=== PATIENT | female | born 1980 | race Caucasian/White ===

== ENCOUNTER 2016-11-16 15:13 | Emergency (ER) | payer OTHER ==
--- NOTE | 2016-11-16 15:16 | EDM.PDOC ---
ED HPI GENERAL MEDICAL PROBLEM - General Chief Complaint: Abdominal Pain Stated Complaint: POSS KIDNEY STONE Time Seen by Provider: 11/16/16 15:16 - History of Present Illness INITIAL COMMENTS - FREE TEXT/NARRATIVE: 36-year-old female presents emergency room with right-sided abdominal pain. This started with the last hour to hour and a half. It's very similar to prior kidney stones that she has had in the past she cannot get comfortable the pain is getting more significant the pain is in the right flank and wraps around her abdomen. It does not shoot into the groin yet. Patient is significantly uncomfortable. Patient significant past history of SVT post-ablation doing better she uses occasional Lasix when she gets fluid overloaded she's had multiple evaluations heart catheterization some of which show primary pulmonary hypertension this is not confirmed at this point. She's had kidney stones but in our records I cannot confirm this. For control she has an IUD that has worked well for her. Right Flank Pain Score (Numeric/FACES): 8 - Related Data Allergies Allergy/AdvReac Type Severity Reaction Status Date / Time No Known Allergies Allergy Verified 11/16/16 15:27 Home Meds: Home Meds Acetaminophen/HYDROcodone [[place] 325-5 MG] 1 tab PO Q6HR PRN #10 tab 01/10/14 [ Rx] Acetaminophen with Codeine [Tylenol with Codeine #3 Tablet] 1 tab PO DAILY PRN 09/27/14 [History] Cyclobenzaprine [Flexeril] 10 mg PO DAILY PRN 09/27/14 [History] Furosemide [Lasix] 20 mg PO DAILY PRN 09/27/14 [History] Topiramate [Topamax] 50 mg PO BID 09/27/14 [History] Acetaminophen/HYDROcodone [[place] 325-5 MG] 1 - 2 tab PO Q6H PRN #20 tablet 11/16 [Rx] Hydrocodone/Acetaminophen [[place] 5-325 Tablet] 1 - 2 tab PO Q6H PRN #20 tablet 11/16/16 [Rx] Past Medical History Cardiovascular History: Reports: Heart Failure, Other (See Below) Other Cardiovascular History: SVT, fluid retention - Past Surgical History HEENT Surgical History: Reports: Eye Surgery Cardiovascular Surgical History: Reports: Other (See Below) Social & Family History - Family History Neurological: Reports: Cerebral Aneurysms Oncologic: Reports: Brain - Tobacco Use Smoking Status *Q: Never Smoker Second Hand Smoke Exposure: No - Alcohol Use Days Per Week of Alcohol Use: 1 Number of Drinks Per Day: 1 Total Drinks Per Week: 1 - Recreational Drug Use Recreational Drug Use: No ED ROS GENERAL - Review of Systems Review Of Systems: See Below Constitutional: Reports: Chills (She has chills with pain). Denies: Fever HEENT: Reports: No Symptoms Respiratory: Reports: No Symptoms Cardiovascular: Reports: No Symptoms GI/Abdominal: Reports: Abdominal Pain, Nausea. Denies: Black Stool, Bloody Stool, Constipation, Diarrhea, Vomiting : Reports: Flank Pain. Denies: Dysuria, Frequency ED EXAM, GENERAL - Physical Exam Exam: See Below Exam Limited By: No Limitations General Appearance: Alert, Mild Distress (From the pain she keeps needing to change positions to try and find a comfortable position but this does not help much) Head: Atraumatic, Normocephalic Neck: Normal Inspection, Supple, Non-Tender, Full Range of Motion Respiratory/Chest: No Respiratory Distress, Lungs Clear, Normal Breath Sounds Cardiovascular: Regular Rate, Rhythm, No Edema, No Murmur GI/Abdominal: Normal Bowel Sounds, Soft, Other. No: Non-Tender (She has significant right-sided abdominal tenderness this is not worsened with palpation no rebound or guarding appreciated) Back Exam: Normal Inspection, CVA Tenderness (R). No: CVA Tenderness (L) Extremities: Normal Inspection, No Pedal Edema Neurological: Alert, Oriented, Normal Cognition Course - Vital Signs Last Recorded V/S: Last Vital Signs Temp 36.6 C 11/16/16 15:24 Pulse 94 11/16/16 15:24 Resp 16 11/16/16 15:24 BP 137/92 H 11/16/16 15:24 Pulse Ox 99 11/16/16 15:24 - Orders/Labs/Meds Orders: Active Orders 24 hr Category Date Time Status Abdomen Pelvis wo Cont [CT] Stat Exams 11/16/16 15:47 Taken Lactated Ringers [Ringers, Lactated] 1,000 ml Med 11/16/16 15:45 Active IV ASDIRECTED Medication Orders Lactated Ringer's (Ringers, Lactated) 1,000 mls @ 100 mls/hr IV ASDIRECTED CHANTELL Last Admin: 11/16/16 15:53 Dose: 100 mls/hr Labs: Laboratory Tests 11/16/16 11/16/16 11/16/16 Range/Units 15:40 15:40 16:55 WBC 8.30 (3.98-10.04) K/mm3 RBC 4.31 (3.98-5.22) M/mm3 Hgb 13.0 (11.2-15.7) gm/L Hct 38.6 (34.1-44.9) % MCV 89.6 (79.4-94.8) fl MCH 30.2 (25.6-32.2) pg MCHC 33.7 (32.2-35.5) g/dl RDW Std Deviation 42.2 (36.4-46.3) fL Plt Count 314 (182-369) K/mm3 MPV 9.4 (9.4-12.3) fl Neutrophils % (Manual) 49 (40-60) % Band Neutrophils % 0 (0-10) % Lymphocytes % (Manual) 40 (20-40) % Atypical Lymphs % 0 % Monocytes % (Manual) 2 (2-10) % Eosinophils % (Manual) 7 H (0.7-5.8) % Basophils % (Manual) 2 H (0.1-1.2) Platelet Estimate Adequate Plt Morphology Comment Normal Anisocytosis 1+ slight RBC Morph Comment Not Reportable Sodium 138 (136-145) mEq/L Potassium 3.8 (3.5-5.1) mEq/L Chloride 107 (98-107) mEq/L Carbon Dioxide 20 L (21-32) mEq/L Anion Gap 14.8 (5-15) BUN 9 (7-18) mg/dL Creatinine 0.9 (0.55-1.02) mg/dL Est Cr Clr Drug Dosing 77.01 mL/min Estimated GFR (MDRD) > 60 (>60) mL/min BUN/Creatinine Ratio 10.0 L (14-18) Glucose 134 H (74-106) mg/dL Calcium 9.3 (8.5-10.1) mg/dL Total Bilirubin 0.2 (0.2-1.0) mg/dL AST 16 (15-37) U/L ALT 21 (14-59) U/L Alkaline Phosphatase 69 (46-116) U/L Total Protein 7.1 (6.4-8.2) g/dl Albumin 3.7 (3.4-5.0) g/dl Globulin 3.4 gm/dL Albumin/Globulin Ratio 1.1 (1-2) Urine Color Light yellow (Yellow) Urine Appearance Clear (Clear) Urine pH 6.0 (5.0-8.0) Ur Specific [place] 1.025 (1.005-1.030) Urine Protein Negative (Negative) Urine Glucose (UA) Negative (Negative) Urine Ketones Negative (Negative) Urine Occult Blood 2+ H (Negative) Urine Nitrite Negative (Negative) Urine Bilirubin Negative (Negative) Urine Urobilinogen 0.2 (0.2-1.0) Ur Leukocyte Esterase Negative (Negative) Urine RBC 10-20 H (0-5) /hpf Urine WBC 0-5 (0-5) /hpf Ur Epithelial Cells 10-20 H (0-5) /hpf Urine Bacteria Rare (FEW) /hpf Urine Mucus Not seen (FEW) /hpf Meds: Medications Generic Name Dose Route Start Last Admin Trade Name [place] PRN Reason Stop Dose Admin Lactated Ringer's 1,000 mls @ 100 mls/hr 11/16/16 15:45 11/16/16 15:53 Ringers, Lactated IV 100 mls/hr ASDIRECTED CHANTELL Administration Discontinued Medications Generic Name Dose Route Start Last Admin Trade Name Freq PRN Reason Stop Dose Admin Hydrocodone Bitart/Acetaminophen 1 tab 11/16/16 17:12 11/16/16 17:24 [place] 325-5 Mg PO 11/16/16 17:13 1 tab ONETIME ONE Administration Fentanyl 100 mcg 11/16/16 15:45 11/16/16 15:57 Sublimaze IVPUSH 11/16/16 15:46 100 mcg ONETIME ONE Administration Fentanyl Confirm 11/16/16 15:49 11/16/16 15:54 Sublimaze Administered 11/16/16 15:50 Not Given Dose 100 mcg .ROUTE .STK-MED ONE Lactated Ringer's Confirm 11/16/16 15:49 11/16/16 15:55 Ringers, Lactated Administered 11/16/16 15:50 Not Given Dose 1,000 mls @ as directed .ROUTE .STK-MED ONE Ondansetron HCl 4 mg 11/16/16 15:45 11/16/16 15:53 Zofran IVPUSH 11/16/16 15:46 4 mg ONETIME ONE Administration Ondansetron HCl Confirm 11/16/16 15:49 11/16/16 15:54 Zofran Administered 11/16/16 15:50 Not Given Dose 4 mg .ROUTE .[facility] ONE - Re-Assessments/Exams Free Text/Narrative Re-Assessment/Exam: 11/16/16 19:[address] exam which does not confirm a kidney stone on the right side. This was discussed with the patient and his it turns out her kidney stones were diagnosed based on UA and she never really had any formal imaging done. She does have a fairly large left ovarian cyst this is not were pain is at. Laboratory evaluation is unrevealing at this point. Patient is getting some reasonable pain control on oral medications. Diagnosis this point is abdominal pain unknown cause patient agrees to returning if not improving or returning sooner if getting worse. Departure - Departure Time of Disposition: 19:14 Disposition: Home, Self-Care 01 Clinical Impression: Abdominal pain of unknown cause - Discharge Information Prescriptions: Acetaminophen/HYDROcodone [[place] 325-5 MG] 1 - 2 tab PO Q6H PRN #20 tablet PRN Reason: Abdominal Pain Hydrocodone/Acetaminophen [[place] 5-325 Tablet] 1 - 2 tab PO Q6H PRN #20 tablet PRN Reason: Abdominal Pain Referrals: Gabby Berry MD [Primary Care Provider] - Forms: ED Department Discharge Additional Instructions: Return to the emergency room with any questions problems worsening symptoms. Return in 12-24 hours if not better, sooner if getting worse. The cause of your abdominal pain cannot clearly be identified at this time. You have been started on hydrocodone. Take one or 2 every 6 hours as needed for pain use your home Zofran as needed for nausea. The Montrose can cause sedation allow 12 hours after using that medication before driving or returning to work. - My Orders Last 24 Hours: My Active Orders 11/16/16 15:45 Lactated Ringers [Ringers, Lactated] 1,000 ml IV ASDIRECTED 11/16/16 15:47 Abdomen Pelvis wo Cont [CT] Stat - Assessment/Plan Last 24 Hours: My Active Orders 11/16/16 15:45 Lactated Ringers [Ringers, Lactated] 1,000 ml IV ASDIRECTED 11/16/16 15:47 Abdomen Pelvis wo Cont [CT] Stat
[2016-11-16 15:26] VITALS: BP 137/92
[2016-11-16] MEDS ORDERED: Lactated Ringers 1,000 ML IV SCH (15:45)
[2016-11-16] MEDS ORDERED: fentaNYL 100 MCG/2 ML SDV IVPUSH ONE (15:45)
[2016-11-16] MEDS ORDERED: Ondansetron 4 MG/2 ML SDV IVPUSH ONE (15:45)
[2016-11-16] MEDS ORDERED: Lactated Ringers 1,000 ML ONE (15:49)
[2016-11-16] MEDS ORDERED: fentaNYL 100 MCG/2 ML SDV ONE (15:49)
[2016-11-16] MEDS ORDERED: Ondansetron 4 MG/2 ML SDV ONE (15:49)
[2016-11-16] MEDS ORDERED: Acetaminophen/HYDROcodone 325-5 MG Tab PO ONE (17:12)
--- NOTE | 2016-11-17 18:24 | CT ---
CT abdomen and pelvis Technique: Multiple axial sections were obtained from above the dome of the diaphragm inferiorly through the pubic symphysis. Intravenous and oral contrast not utilized. Study has been performed as a renal stone protocol. Comparison: Previous right upper quadrant abdominal ultrasound of 01/10/14, no previous CT exam. Findings: Visualized lung bases show nothing acute. Noncontrast appearance of the liver and spleen appear within normal limits. Adrenal glands show no nodule. Surgical clips are seen from prior cholecystectomy. Pancreas is within normal limits. Kidneys show no calcifications. No ureteral dilatation or ureteral stone is seen. Aorta shows no aneurysmal dilatation. No retroperitoneal adenopathy or mesenteric abnormalities are seen. Previous appendectomy is noted. No pelvic mass or adenopathy is seen. Incidental 4.0 cm cyst is noted within the left ovary. IUD is present within the endometrial cavity. No free fluid or inflammatory change is identified. Impression: 1. 4.0 cm cyst within the left ovary. IUD is present. 2. No renal calculi, ureteral dilatation or ureteral stone is seen. 3. Nothing acute is identified on noncontrast CT study of the abdomen and pelvis performed as a ureteral stone protocol. Diagnostic code #3 Agree with preliminary report issued by [employer] ([facility] preliminary report dictated on 11/16/16, 5:35 PM Central Time)
== END 2016-11-16 19:42 | disposition home or self-care (01) ==
LOC: JD.ED 15:13
DX: R10.9 Unspecified abdominal pain (principal); I50.9 Heart failure, unspecified; Z98.890 Other specified postprocedural states; Z79.899 Other long term (current) drug therapy
CPT/HCPCS: 36415; 74176; 80053; 81001; 85025; 96361; 96374; 96375; 99284; A9270; J2405; J3010; J7120; 99283

== ENCOUNTER 2017-07-07 09:22 | Emergency (ER) | payer OTHER ==
[2017-07-07 09:40] VITALS: BP 128/70
--- NOTE | 2017-07-07 09:49 | EDM.PDOC ---
ED HPI GENERAL MEDICAL PROBLEM - General Chief Complaint: Chest Pain Stated Complaint: CHEST PAIN Time Seen by Provider: 07/07/17 09:41 Source of Information: Reports: Patient, RN Notes Reviewed - History of Present Illness INITIAL COMMENTS - FREE TEXT/NARRATIVE: 37-year-old female comes in with mild anterior chest discomfort but also symptoms of nonspecific weakness dizziness. All started a few days ago, continues today. Multiple episodes of feeling weak lightheaded especially standing or walking. This occurred again this morning at work triggered her visit here to the ED at this time. There is mild achiness and tightness of the anterior chest without radiation. She does not feel short of breath. The pain is at times worse with deep breathing. She did have some low-grade fever and chills about for 5 days ago but that is gone. No current cough or sore throat. No current abdominal pain nausea vomiting. She believes that she has been eating and drinking satisfactorily. Chest Pain Score (Numeric/FACES): 5 - Related Data Allergies Allergy/AdvReac Type Severity Reaction Status Date / Time No Known Allergies Allergy Verified 07/07/17 09:40 Home Meds: Home Meds Acetaminophen with Codeine [Tylenol with Codeine #3 Tablet] 1 tab PO DAILY PRN 09/27/14 [History] Cyclobenzaprine [Flexeril] 10 mg PO DAILY PRN 09/27/14 [History] Furosemide [Lasix] 20 mg PO DAILY PRN 09/27/14 [History] Topiramate [Topamax] 75 mg PO BID 09/27/14 [History] Hydrocodone/Acetaminophen [[place] 5-325 Tablet] 1 - 2 tab PO Q6H PRN #20 tablet 11/16/16 [Rx] Past Medical History Cardiovascular History: Reports: Heart Failure, Other (See Below) Other Cardiovascular History: SVT, fluid retention Genitourinary History: Reports: Renal Calculus Neurological History: Reports: Migraines - Past Surgical History HEENT Surgical History: Reports: Eye Surgery Cardiovascular Surgical History: Reports: Cardiac Ablation GI Surgical History: Reports: Appendectomy, Cholecystectomy Social & Family History - Family History Family Medical History: Noncontributory Neurological: Reports: Cerebral Aneurysms Oncologic: Reports: Brain - Tobacco Use Smoking Status *Q: Never Smoker Second Hand Smoke Exposure: No - Caffeine Use Caffeine Use: Reports: Soda - Alcohol Use Days Per Week of Alcohol Use: 1 Number of Drinks Per Day: 1 Total Drinks Per Week: 1 - Recreational Drug Use Recreational Drug Use: No ED ROS GENERAL - Review of Systems Review Of Systems: See Below Constitutional: Denies: Fever, Chills HEENT: Denies: Sinus Problem, Throat Pain Respiratory: Reports: Pleuritic Chest Pain. Denies: Shortness of Breath, Cough (Occasional mild) Cardiovascular: Reports: Chest Pain GI/Abdominal: Denies: Abdominal Pain, Diarrhea, Nausea, Vomiting : Reports: No Symptoms Musculoskeletal: Denies: Shoulder Pain, Arm Pain, Joint Pain Skin: Reports: No Symptoms Neurological: Reports: Dizziness. Denies: Numbness, Tingling ED EXAM, GENERAL - Physical Exam Exam: See Below General Appearance: Alert, No Apparent Distress Eye Exam: Bilateral Eye: PERRL Throat/Mouth: Normal Inspection, Normal Oropharynx Head: Atraumatic. No: Facial Swelling Neck: Supple, Full Range of Motion Respiratory/Chest: No Respiratory Distress, Lungs Clear, Normal Breath Sounds Cardiovascular: Regular Rate, Rhythm GI/Abdominal: Soft, Non-Tender. No: Guarding Back Exam: Normal Inspection. No: CVA Tenderness (L), CVA Tenderness (R) Extremities: Normal Inspection, Normal Range of Motion. No: Pedal Edema, Leg Pain Neurological: Alert, Oriented, No Motor/Sensory Deficits Skin Exam: Warm, Dry, Normal Color EKG INTERPRETATION EKG Date: 07/07/17 Rhythm: NSR [place]: Normal P-Wave: Present QRS: Normal ST-T: Normal Course - Vital Signs Last Recorded V/S: Last Vital Signs Temp 97.4 F 07/07/17 09:34 Pulse 61 07/07/17 09:34 Resp 16 07/07/17 09:34 BP 128/70 07/07/17 09:34 Pulse Ox 100 07/07/17 09:34 - Orders/Labs/Meds Orders: Active Orders 24 hr Category Date Time Status EKG 12 Lead [EKG Documentation Completion] [RC] STAT Care 07/07/17 10:02 Active Labs: Laboratory Tests 07/07/17 07/07/17 Range/Units 10:10 10:10 WBC 5.61 (3.98-10.04) K/mm3 RBC 4.25 (3.98-5.22) M/mm3 Hgb 12.4 (11.2-15.7) gm/L Hct 38.4 (34.1-44.9) % MCV 90.4 (79.4-94.8) fl MCH 29.2 (25.6-32.2) pg MCHC 32.3 (32.2-35.5) g/dl RDW Std Deviation 40.5 (36.4-46.3) fL Plt Count 283 (182-369) K/mm3 MPV 9.2 L (9.4-12.3) fl Neut % (Auto) 54.2 (34.0-71.1) % Lymph % (Auto) 33.2 (19.3-51.7) % Clinch % (Auto) 7.1 (4.7-12.5) % Eos % (Auto) 4.6 (0.7-5.8) Baso % (Auto) 0.7 (0.1-1.2) % Neut # (Auto) 3.04 (1.56-6.13) K/mm3 Lymph # (Auto) 1.86 (1.18-3.74) K/mm3 Clinch # (Auto) 0.40 H (0.24-0.36) K/mm3 Eos # (Auto) 0.26 (0.04-0.36) K/mm3 Baso # (Auto) 0.04 (0.01-0.08) K/mm3 Sodium 141 (136-145) mEq/L Potassium 4.3 (3.5-5.1) mEq/L Chloride 106 (98-107) mEq/L Carbon Dioxide 25 (21-32) mEq/L Anion Gap 14.3 (5-15) BUN 8 (7-18) mg/dL Creatinine 0.9 (0.55-1.02) mg/dL Est Cr Clr Drug Dosing 76.26 mL/min Estimated GFR (MDRD) > 60 (>60) mL/min BUN/Creatinine Ratio 8.9 L (14-18) Glucose 104 (74-106) mg/dL Calcium 9.5 (8.5-10.1) mg/dL Total Bilirubin 0.3 (0.2-1.0) mg/dL AST 13 L (15-37) U/L ALT 19 (14-59) U/L Alkaline Phosphatase 58 (46-116) U/L Troponin I < 0.017 (0.00-0.056) ng/mL Total Protein 7.0 (6.4-8.2) g/dl Albumin 3.8 (3.4-5.0) g/dl Globulin 3.2 gm/dL Albumin/Globulin Ratio 1.2 (1-2) - Re-Assessments/Exams Free Text/Narrative Re-Assessment/Exam: 07/07/17 11:32 Hemoglobin 12.4, other labs all come back relatively normal. EKG is normal. O2 sats have been 99 to 100. sinus rythm, no ectopy. Discharge instr. as documented. Departure - Departure Time of Disposition: 11:38 Disposition: Home, Self-Care 01 Condition: Fair Clinical Impression: Near syncope, Atypical chest pain Instructions: Near-Syncope, [id number], Nonspecific Chest Pain, [id number] Referrals: PCP,None [Ordering Only Provider] - Forms: ED Department Discharge Additional Instructions: Your heart and lungs checked out well today, your hemoglobin at 12.4 was in the lower range of normal, consider iron supplement for the next month or so to help build that up. When you do get extremely lightheaded similar to earlier today be sure to get your head down as discussed so you do not pass out and hurt yourself. Follow-up clinic if not much better within the next several days as expected, return to ED as needed if symptoms worsening in any way. - My Orders Last 24 Hours: My Active Orders 07/07/17 10:02 EKG 12 Lead [EKG Documentation Completion] [RC] STAT - Assessment/Plan Last 24 Hours: My Active Orders 07/07/17 10:02 EKG 12 Lead [EKG Documentation Completion] [RC] STAT
== END 2017-07-07 11:51 | disposition home or self-care (01) ==
LOC: JD.ED 09:22
DX: R55 Syncope and collapse (principal); R07.89 Other chest pain; Z79.899 Other long term (current) drug therapy
CPT/HCPCS: 36415; 80053; 84484; 85025; 93005; 93010; 99284-25; 99285-25

== ENCOUNTER 2017-07-12 15:31 | Emergency (ER) | payer OTHER ==
[2017-07-12 15:43] VITALS: BP 121/84
[2017-07-12] MEDS ORDERED: HYDROmorphone 1 MG/ML Syringe IM ONE (16:19)
[2017-07-12] MEDS ORDERED: Ketorolac 60 MG/2 ML SDV IM ONE (16:19)
--- NOTE | 2017-07-12 16:22 | EDM.PDOC ---
ED HPI GENERAL MEDICAL PROBLEM - General Chief Complaint: Upper Extremity Injury/Pain Stated Complaint: Right wrist injury Time Seen by Provider: 07/12/17 15:40 Source of Information: Reports: Patient, RN Notes Reviewed History Limitations: Reports: No Limitations - History of Present Illness INITIAL COMMENTS - FREE TEXT/NARRATIVE: 37 year old female presents to the ED today with swelling and deformity to right wrist. Injury happened today. She had a syncopal episode in the shower and subsequently injured her wrist. This episode occurred after she vomited. She has a history of syncope and SVT. She has had an ablation in the past and has been doing well until recently. She was in the ED this past week for syncope complaints and palpitations. She is planning to f/u with her PCP and then proceed from there regarding her syncope. Her primary concern today is her wrist. She took two Aleve [employer]IST. She reports some numness and tingling to her fingers. Right Wrist Pain Score (Numeric/FACES): 7 - Related Data Allergies Allergy/AdvReac Type Severity Reaction Status Date / Time No Known Allergies Allergy Verified 07/07/17 09:40 Home Meds: Home Meds Acetaminophen with Codeine [Tylenol with Codeine #3 Tablet] 1 tab PO DAILY PRN 09/27/14 [History] Cyclobenzaprine [Flexeril] 10 mg PO DAILY PRN 09/27/14 [History] Furosemide [Lasix] 20 mg PO DAILY PRN 09/27/14 [History] Topiramate [Topamax] 50 mg PO DAILY 09/27/14 [History] Acetaminophen/HYDROcodone [[place] 325-5 MG] 1 - 2 tab PO Q4H PRN #20 tablet 07/12 [Rx] Hydrocodone/Acetaminophen [[place] 5-325 Tablet] 1 - 2 tab PO Q6H PRN 07/12/17 [ History] Potassium Chloride 0 meq PO ASDIRECTED PRN 07/12/17 [History] Topiramate [Topamax] 100 mg PO BEDTIME 07/12/17 [History] Past Medical History Cardiovascular History: Reports: Heart Failure, Syncope, Other (See Below) Other Cardiovascular History: SVT, fluid retention Genitourinary History: Reports: Renal Calculus Neurological History: Reports: Migraines - Past Surgical History HEENT Surgical History: Reports: Eye Surgery Cardiovascular Surgical History: Reports: Cardiac Ablation GI Surgical History: Reports: Appendectomy, Cholecystectomy Social & Family History - Family History Family Medical History: Noncontributory Neurological: Reports: Cerebral Aneurysms Oncologic: Reports: Brain - Tobacco Use Smoking Status *Q: Never Smoker Second Hand Smoke Exposure: No - Caffeine Use Caffeine Use: Reports: Soda - Alcohol Use Days Per Week of Alcohol Use: 1 Number of Drinks Per Day: 1 Total Drinks Per Week: 1 - Recreational Drug Use Recreational Drug Use: No Review of Systems - Review of Systems Review Of Systems: See Below Respiratory: Reports: No Symptoms. Denies: Shortness of Breath Cardiovascular: Reports: Syncope. Denies: Chest Pain, Lightheadedness GI/Abdominal: Reports: Nausea, Vomiting. Denies: Abdominal Pain Musculoskeletal: Reports: Other (wrist pain, swelling ) Skin: Reports: Bruising Neurological: Reports: Numbness, Tingling ED EXAM, GENERAL - Physical Exam Exam: See Below Exam Limited By: No Limitations General Appearance: Alert, WD/WN, Moderate Distress Respiratory/Chest: No Respiratory Distress, Lungs Clear, Normal Breath Sounds Cardiovascular: Normal Peripheral Pulses, Regular Rate, Rhythm, No Edema, No Murmur, Other (NSR 70 - 80 bpm on monitor) Peripheral Pulses: 2+: Radial (R) GI/Abdominal: Normal Bowel Sounds, Soft, Non-Tender Extremities: Joint Swelling (right wrist ), Other (bony point tenderness to right wrist with mild deformity and bruising. Neurovascular status intact. ) Neurological: Alert, Normal Cognition, No Motor/Sensory Deficits Skin Exam: Warm, Dry, Intact Course - Vital Signs Last Recorded V/S: Last Vital Signs Temp 97.2 F 07/12/17 15:41 Pulse 79 07/12/17 15:41 Resp 20 07/12/17 15:41 BP 121/84 07/12/17 15:41 Pulse Ox 97 07/12/17 15:41 - Orders/Labs/Meds Orders: Active Orders 24 hr Category Date Time Status Wrist Comp Min 3V Rt [CR] Stat Exams 07/12/17 15:55 Ordered Meds: Medications Discontinued Medications Generic Name Dose Route Start Last Admin Trade Name Freq PRN Reason Stop Dose Admin Hydromorphone HCl 0.5 mg 07/12/17 16:19 07/12/17 16:27 Dilaudid IM 07/12/17 16:20 0.5 mg ONETIME ONE Administration Ketorolac Tromethamine 60 mg 07/12/17 16:19 07/12/17 16:27 Toradol IM 07/12/17 16:20 60 mg ONETIME ONE Administration - Radiology Interpretation Free Text/Narrative:: Wrist x-ray obtained. No bony abnormality or dislocation appreciated. I had Dr. Booker look at this as well and he agrees with my interpretation. Formal radiologist interpretation is pending. - Re-Assessments/Exams Free Text/Narrative Re-Assessment/Exam: Patient was given Dilaudid 0.5mg and Toradol 60mg IM while in the ED. She will be placed in a removable wrist splint with instructions to f/u with Dr. Cerna this week. She was educated on supportive care. She will be given a prescription for Harrison 1-2 tabs every 4-6 hours PRN severe pain. She was instructed to f/u with her PCP regarding her Syncope. Departure - Departure Time of Disposition: 16:20 Disposition: Home, Self-Care 01 Condition: Good Clinical Impression: Wrist injury Qualifiers: Encounter type: initial encounter Laterality: right Qualified Code(s): S69.91XA - Unspecified injury of right wrist, hand and finger(s), initial encounter - Discharge Information Prescriptions: Acetaminophen/HYDROcodone [[place] 325-5 MG] 1 - 2 tab PO Q4H PRN #20 tablet PRN Reason: Pain Referrals: Gabby Berry MD [Primary Care Provider] - Forms: ED Department Discharge Additional Instructions: Rest, ice and elevate Wear splint as tolerated Follow-up with Dr. Cerna this week, call [phone] to schedule Ibuprofen 600mg 3 times a day with Tylenol or Harrison as needed for breakthrough pain Do not exceed 3000mg of Tylenol per day No driving or operating machinery while taking the Harrison. Follow-up with your primary care provider regarding your syncope episodes. - My Orders Last 24 Hours: My Active Orders 07/12/17 15:55 Wrist Comp Min 3V Rt [CR] Stat - Assessment/Plan Last 24 Hours: My Active Orders 07/12/17 15:55 Wrist Comp Min 3V Rt [CR] Stat
--- NOTE | 2017-07-13 12:53 | CR ---
Right wrist: Three views of the right wrist were obtained. Comparison: No prior right wrist exam. Soft tissue swelling is identified. Joint spaces are preserved. No fracture, dislocation or other bony abnormality is appreciated. Impression: 1. Soft tissue swelling. No acute bony abnormality is appreciated. Diagnostic code #2
== END 2017-07-12 16:44 | disposition home or self-care (01) ==
LOC: JD.ED 15:31
DX: S60.211A Contusion of right wrist, initial encounter (principal); I50.9 Heart failure, unspecified; Z79.899 Other long term (current) drug therapy; X58.XXXA Exposure to other specified factors, initial encounter
CPT/HCPCS: 73110; 96372; 99284; J1170; J1885; 99283

== ENCOUNTER 2017-09-13 05:35 | Emergency (ER) | payer OTHER ==
[2017-09-13 05:51] VITALS: BP 111/99
[2017-09-13] MEDS ORDERED: HYDROmorphone 0.5 MG/0.5 ML SYRINGE IVPUSH ONE ×2 (05:53→06:42)
[2017-09-13] MEDS ORDERED: Metoclopramide 10 MG/2 ML SDV IVPUSH ONE (05:54)
--- NOTE | 2017-09-13 05:58 | EDM.PDOC ---
<Morgan Briggs - Last Filed: 09/13/17 09:14> ED HPI GENERAL MEDICAL PROBLEM - General Chief Complaint: Flank Pain Stated Complaint: back and side pain Time Seen by Provider: 09/13/17 05:53 - Related Data Allergies Allergy/AdvReac Type Severity Reaction Status Date / Time No Known Allergies Allergy Verified 09/13/17 05:45 Home Meds: Home Meds Furosemide [Lasix] 20 mg PO DAILY PRN 09/27/14 [History] Topiramate [Topamax] 100 mg PO BEDTIME 07/12/17 [History] Ondansetron [Zofran] 4 mg BUCCAL Q6H PRN #5 tab 09/13/17 [Rx] oxyCODONE HCl/Acetaminophen [Percocet 5-325 mg Tablet] 1 - 2 each PO Q4H PRN # 15 tablet 09/13/17 [Rx] Course - Vital Signs Last Recorded V/S: Last Vital Signs Temp 36.2 C 09/13/17 05:42 Pulse 78 09/13/17 05:42 Resp 16 09/13/17 05:42 BP 111/99 H 09/13/17 05:42 Pulse Ox 100 09/13/17 05:42 - Orders/Labs/Meds Orders: Active Orders 24 hr Category Date Time Status Abdomen Pelvis wo Cont [CT] Stat Exams 09/13/17 05:55 Taken URINALYSIS W/MICROSCOPIC [UA W/MICROSCOPIC] [URIN] Stat Lab 09/13/17 05:59 Ordered Labs: Laboratory Tests 09/13/17 Range/Units 05:59 Urine Color Yellow (Yellow) Urine Appearance Clear (Clear) Urine pH 6.0 (5.0-8.0) Ur Specific Deshler > or = 1.030 (1.005-1.030) Urine Protein Negative (Negative) Urine Glucose (UA) Negative (Negative) Urine Ketones Negative (Negative) Urine Occult Blood 3+ H (Negative) Urine Nitrite Negative (Negative) Urine Bilirubin Negative (Negative) Urine Urobilinogen 0.2 (0.2-1.0) Ur Leukocyte Esterase Negative (Negative) Urine RBC 75-100 H (0-5) /hpf Urine WBC 0-5 (0-5) /hpf Ur Epithelial Cells 10-20 H (0-5) /hpf Urine Bacteria Moderate H (FEW) /hpf Urine Mucus Moderate H (FEW) /hpf Meds: Medications Discontinued Medications Generic Name Dose Route Start Last Admin Trade Name Jannette PRN Reason Stop Dose Admin Fentanyl 100 mcg 09/13/17 07:59 09/13/17 08:07 Sublimaze IVPUSH 09/13/17 08:00 100 mcg ONETIME ONE Administration Fentanyl 50 mcg 09/13/17 09:13 09/13/17 09:18 Sublimaze IVPUSH 09/13/17 09:14 50 mcg ONETIME ONE Administration Hydromorphone HCl 1 mg 09/13/17 05:53 09/13/17 06:04 Dilaudid IVPUSH 09/13/17 05:54 1 mg ONETIME ONE Administration Hydromorphone HCl 0.5 mg 09/13/17 06:42 09/13/17 06:48 Dilaudid IVPUSH 09/13/17 06:43 0.5 mg ONETIME ONE Administration Sodium Chloride 1,000 mls @ 150 mls/hr 09/13/17 06:00 09/13/17 06:03 Normal Saline IV 150 mls/hr ASDIRECTED CHANTELL Administration Ketorolac Tromethamine 30 mg 09/13/17 06:00 09/13/17 06:08 Toradol IVPUSH 30 mg ONETIME CHANTELL Administration Metoclopramide HCl 7.5 mg 09/13/17 05:54 09/13/17 06:04 Reglan IVPUSH 09/13/17 05:55 7.5 mg ONETIME ONE Administration - Re-Assessments/Exams Free Text/Narrative Re-Assessment/Exam: 09/13/17 09:[address] Means. Her CT shows a 2mm distal right ureteral calculus causes dilatation of the right ureter, and right collecting system. The right kidney is edematous and there is right perirenal stranding. She still had pain so I ordered fentanyl 100mcg IV. She is about to leave now so I ordered another dose of fentanyl 50mcg IV. Her UA shows no UTI. She does have blood in her urine. Departure - Departure Time of Disposition: 09:20 Disposition: Home, Self-Care 01 Condition: Fair Clinical Impression: Renal colic on right side, Ureteral calculus, right, Kidney stone on right side - Discharge Information Prescriptions: Ondansetron [Zofran] 4 mg BUCCAL Q6H PRN #5 tab PRN Reason: nausea or vomiting oxyCODONE HCl/Acetaminophen [Percocet 5-325 mg Tablet] 1 - 2 each PO Q4H PRN # 15 tablet PRN Reason: pain relief. Instructions: Renal Colic, [id number], Kidney Stones, [id number] Referrals: Gabby Berry MD [Primary Care Provider] - Alfonso Cole MD [Physician] - 1 Week Forms: ED Department Discharge Additional Instructions: Evaluation the emergency room this morning in regards to acute onset of severe right flank pain radiating into the right hemiabdomen towards the groin. Symptoms are characteristic of a kidney stone. Urinalysis shows 3+ blood cells in the urine which is characteristic of a kidney stone as well. CT scan of the abdomen and pelvis performed per renal protocol reveals mild to moderate swelling of the right kidney due to obstruction of the ureter. Ureter is dilated down to the urinary bladder but no definitive stone or calcified stone is identified on CT. This may mean this may be a uric acid stone which does not show up on CT. You're treated in the ED with intravenous pain medication Dilaudid initially with 1 mg and then a 0.5 mg dose later on. Also received initial dose of Toradol 30 mg IV for pain relief and Reglan for nausea relief. Usually the stones pass over the next 48-72 hours. However they are unpredictable. Treatment is Zofran 4 mg under the tongue every 4-6 hours as needed for nausea relief. Percocet tabs 5/3/25 one or 2 every 4-6 hours needed for pain relief. Stone is in the urinary bladder he will pass without any further pain. Of note CT did not identify any other stones within the kidney tissues at this time. Of note there is increased stool particularly throughout the right hemicolon and if you need many of the pain pills you should also start MiraLAX powder 17 g or 1 scoop daily to prevent worsening of constipation from the pain medications. Strain the urine to make sure that you pass the stone. It should feel like a piece of stone or sand. It can be of any color usually reynoso to black. If stone was not noted to have passed over the next 2 weeks and follow-up with your personal physician in this regard. Also when he would need to return to the hospital. Developed any fever, chills nausea or vomiting that was not controlled by oral medications - My Orders Last 24 Hours: My Active Orders 09/13/17 05:55 Abdomen Pelvis wo Cont [CT] Stat 09/13/17 05:59 URINALYSIS W/MICROSCOPIC [UA W/MICROSCOPIC] [URIN] Stat - Assessment/Plan Last 24 Hours: My Active Orders 09/13/17 05:55 Abdomen Pelvis wo Cont [CT] Stat 09/13/17 05:59 URINALYSIS W/MICROSCOPIC [UA W/MICROSCOPIC] [URIN] Stat <ClaryRick jiménez Dora - Last Filed: 09/13/17 19:47> ED HPI GENERAL MEDICAL PROBLEM - General Source of Information: Reports: Patient, Family (spouse) History Limitations: Reports: No Limitations - History of Present Illness INITIAL COMMENTS - FREE TEXT/NARRATIVE: 37-year-old female attends the ED with her . She awoke from sleep within the last hour with severe pain in her right flank. Associated nausea and vomiting of bilious emesis. Associated feeling of need to void and to defecate. Continues to have a feeling of need to void. Pain does radiate into the right hemiabdomen down towards the groin. She has no history of renal stones. Previous abdominal surgeries include total abdominal hysterectomy and BSO. Cholecystectomy. Appendectomy. Laparoscopy prior to hysterectomy for endometriosis. Has not noticed any blood in her urine. She indicates that she's been having right flank pain off and on for the last 6 days. Usually would last for short periods of time and never was associated with nausea and vomiting until tonight. This suggests a stone has been vomiting the renal pelvis for the last week. This would suggest its likely of large caliber pain is currently 10 out of 10. It is constant with a colicky component. Onset: Today Onset Date: 09/13/17 Onset Time: 04:40 Duration: Hour(s): Location: Reports: Abdomen, Back (Right flank pain) Quality: Reports: Ache, Sharp, Stabbing Severity: Severe Improves with: Reports: None (10 out of 10 in no position is comfortable.) Worsens with: Reports: None Context: Denies: Activity, Exercise, Lifting, Sick Contact, Trauma, Other Associated Symptoms: Reports: Loss of Appetite, Nausea/Vomiting. 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: Other (see below) (None.) Right Flank Pain Score (Numeric/FACES): 10 Past Medical History Cardiovascular History: Reports: Heart Failure, Syncope, Other (See Below) Other Cardiovascular History: SVT, fluid retention Genitourinary History: Reports: Renal Calculus Neurological History: Reports: Migraines - Past Surgical History HEENT Surgical History: Reports: Eye Surgery Cardiovascular Surgical History: Reports: Cardiac Ablation GI Surgical History: Reports: Appendectomy, Cholecystectomy Female Surgical History: Reports: Hysterectomy (Both ovaries were left in.), Other (See Below) (Laparoscopy for endometriosis.) Social & Family History - Family History Family Medical History: Noncontributory Neurological: Reports: Cerebral Aneurysms Oncologic: Reports: Brain - Tobacco Use Smoking Status *Q: Never Smoker - Caffeine Use Caffeine Use: Reports: Coffee - Recreational Drug Use Recreational Drug Use: No - Living Situation & Occupation Living situation: Reports: Occupation: Employed ED ROS GENERAL - Review of Systems Review Of Systems: See Below Constitutional: Reports: Decreased Appetite. Denies: Fever, Chills, Malaise, Weakness, Fatigue, Weight Loss HEENT: Reports: No Symptoms Respiratory: Reports: No Symptoms Cardiovascular: Reports: No Symptoms Endocrine: Reports: No Symptoms GI/Abdominal: Reports: Abdominal Pain (Currently he is experiencing some right olvin-abdominal pain down to the groin. Most her pain however is in her right flank.) : Reports: Flank Pain, Frequency (Severe right side), Urgency Musculoskeletal: Reports: Back Pain Skin: Reports: No Symptoms (Right flank pain) Neurological: Reports: No Symptoms Psychiatric: Reports: No Symptoms Hematologic/Lymphatic: Reports: No Symptoms Immunologic: Reports: No Symptoms ED EXAM, RENAL/ - Physical Exam Exam: See Below Exam Limited By: No Limitations General Appearance: Alert, Moderate Distress (In obvious discomfort. Can't lay down for examination no position is comfortable.) Eye Exam: Bilateral Eye: Normal Inspection (No jaundice.) Throat/Mouth: Normal Inspection, Normal Lips, Normal Oropharynx Head: Atraumatic, Normocephalic Neck: Normal Inspection, Supple, Non-Tender, Full Range of Motion. No: Lymphadenopathy (L), Lymphadenopathy (R) Respiratory/Chest: No Respiratory Distress, Lungs Clear, Normal Breath Sounds, Chest Non-Tender Cardiovascular: Normal Peripheral Pulses, Regular Rate, Rhythm, No Edema, No Gallop, No Murmur, No Rub GI/Abdominal: Non-Tender (Decreased bowel sounds.), No Organomegaly, No Abnormal Bruit, No Mass, Pelvis Stable, Abnormal Bowel Sounds, Other (Several surgical scars from laparoscopies) Back Exam: CVA Tenderness (R). No: CVA Tenderness (L) (Moderate) Extremities: Normal Inspection, Normal Range of Motion, Non-Tender, No Pedal Edema Neurological: Alert, Oriented, CN II-XII Intact, Normal Cognition, Normal Gait Psychiatric: Normal Affect, Normal Mood Skin Exam: Warm, Dry, Intact, Normal Color, No Rash Course - Orders/Labs/Meds Orders: Active Orders 24 hr Category Date Time Status Abdomen Pelvis wo Cont [CT] Stat Exams 09/13/17 05:55 Taken URINALYSIS W/MICROSCOPIC [UA W/MICROSCOPIC] [URIN] Stat Lab 09/13/17 05:59 Ordered Labs: Laboratory Tests 09/13/17 Range/Units 05:59 Urine Color Yellow (Yellow) Urine Appearance Clear (Clear) Urine pH 6.0 (5.0-8.0) Ur Specific [place] > or = 1.030 (1.005-1.030) Urine Protein Negative (Negative) Urine Glucose (UA) Negative (Negative) Urine Ketones Negative (Negative) Urine Occult Blood 3+ H (Negative) Urine Nitrite Negative (Negative) Urine Bilirubin Negative (Negative) Urine Urobilinogen 0.2 (0.2-1.0) Ur Leukocyte Esterase Negative (Negative) Urine RBC 75-100 H (0-5) /hpf Urine WBC 0-5 (0-5) /hpf Ur Epithelial Cells 10-20 H (0-5) /hpf Urine Bacteria Moderate H (FEW) /hpf Urine Mucus Moderate H (FEW) /hpf Meds: Medications Discontinued Medications Generic Name Dose Route Start Last Admin Trade Name Ministerioq PRN Reason Stop Dose Admin Fentanyl 100 mcg 09/13/17 07:59 09/13/17 08:07 Sublimaze IVPUSH 09/13/17 08:00 100 mcg ONETIME ONE Administration Fentanyl 50 mcg 09/13/17 09:13 09/13/17 09:18 Sublimaze IVPUSH 09/13/17 09:14 50 mcg ONETIME ONE Administration Hydromorphone HCl 1 mg 09/13/17 05:53 09/13/17 06:04 Dilaudid IVPUSH 09/13/17 05:54 1 mg ONETIME ONE Administration Hydromorphone HCl 0.5 mg 09/13/17 06:42 09/13/17 06:48 Dilaudid IVPUSH 09/13/17 06:43 0.5 mg ONETIME ONE Administration Sodium Chloride 1,000 mls @ 150 mls/hr 09/13/17 06:00 09/13/17 06:03 Normal Saline IV 150 mls/hr ASDIRECTED CHANTELL Administration Ketorolac Tromethamine 30 mg 09/13/17 06:00 09/13/17 06:08 Toradol IVPUSH 30 mg ONETIME CHANTELL Administration Metoclopramide HCl 7.5 mg 09/13/17 05:54 09/13/17 06:04 Reglan IVPUSH 09/13/17 05:55 7.5 mg ONETIME ONE Administration - Radiology Interpretation Free Text/Narrative:: 37-year-old female attends the ED with acute onset of right flank pain that awoke her from sleep within the last hour. Associated nausea and vomiting. Socially no position is comfortable. She also has a strong feeling of need to defecate and to pass her urine. Has not noticed any hematuria. Has been having intermittent right flank pain since last Friday. I.e. for the last 6 days. Has had previous total abdominal hysterectomy and BSO. She's had a cholecystectomy and appendectomy. Benign abdominal examination. Plan IV normal saline at 150 mils per hour. Dilaudid 1 mg IV with Reglan 7.5 mg IV and Toradol 30 mg IV for pain relief. Urinalysis and then CT of the abdomen to be done per renal protocol - Re-Assessments/Exams Free Text/Narrative Re-Assessment/Exam: 09/13/17 06:43 patient reports her pain is improved but not gone. She still has 4/10 pain. Will give her further dose of Dilaudid 0.[address] the abdomen and pelvis is done per per renal protocol. There is mild right-sided hydronephrosis. No stones are visible within the renal parenchyma on either side. The right ureter is dilated down to the urinary bladder but no definitive stone is evident at this time. Uric acid stone occluding the ureter as possible and is not visible on CT. She has voided in the bladder is empty. The fact that she still having pain suggest she is passing a stone. It appears the stone is likely in the distal aspect of the ureter since it is dilated to that level. Gallbladder is absent. Liver appears homogeneous. Spleen is normal pancreas appears normal. Renal glands appear to be within normal limits. There is increased stool throughout the right hemicolon. No free fluid in the pelvis. Uterus is absent. Ovaries are very ill-defined. 09/13/17 07:06 urinalysis reveals 3+ hematuria. Leukocyte Estrace is negative. Her 75-100 RBCs per high-power field. Moderate bacteria noted. Care will be assumed by Dr. Briggs as it is change of shift. She needs to stay until her pain is controlled. Will be discharged with the urinary system. Prescription written for Percocet tabs 07/24/24 one or 2 every 4-6 hours as needed for pain relief and Zofran 4 mg sublingual every 4-6 hours needed for nausea relief 5 tablets. Departure - Departure Condition: Fair - My Orders Last 24 Hours: My Active Orders 09/13/17 05:55 Abdomen Pelvis wo Cont [CT] Stat 09/13/17 05:59 URINALYSIS W/MICROSCOPIC [UA W/MICROSCOPIC] [URIN] Stat - Assessment/Plan Last 24 Hours: My Active Orders 09/13/17 05:55 Abdomen Pelvis wo Cont [CT] Stat 09/13/17 05:59 URINALYSIS W/MICROSCOPIC [UA W/MICROSCOPIC] [URIN] Stat
[2017-09-13] MEDS ORDERED: Ketorolac 30 MG/ML SDV IVPUSH SCH (06:00)
[2017-09-13] MEDS ORDERED: Sodium Chloride 0.9% 1,000 ML IV SCH (06:00)
[2017-09-13] MEDS ORDERED: fentaNYL 100 MCG/2 ML SDV IVPUSH ONE ×2 (07:59→09:13)
--- NOTE | 2017-09-15 07:07 | CT ---
CT abdomen and pelvis Technique: Multiple axial sections were obtained from above the dome of the diaphragm inferiorly through the pubic symphysis. Intravenous and oral contrast not utilized. Study has been performed as a ureteral stone protocol. Comparison: Prior CT abdomen and pelvis exam of 11/16/16. Findings: Right kidney appears mildly swollen with mild surrounding inflammatory change. Right-sided hydronephrosis is seen with dilated ureter down to the UVJ. These findings are caused by 2.5 mm obstructing stone within the distal right ureter at the UVJ. No other abnormal calcifications are seen along the course of the ureters. No abnormal calcifications are seen within the kidneys. Visualized lung bases show nothing acute. Liver and spleen shows no focal abnormality. Adrenal glands show no nodule. Surgical clips are seen from prior cholecystectomy. No discrete abnormality is seen within the pancreas. Aorta shows no aneurysmal dilatation. No retroperitoneal adenopathy or mesenteric abnormalities are seen. No pelvic mass or adenopathy is seen. Appendix is not identified. Bone window settings were reviewed which appear within normal limits for the patient's age. Impression: 1. Small 2.5 mm obstructing stone within the distal right ureter at the UVJ causing mild proximal hydronephrosis. 2. Other incidental findings as noted above. Diagnostic code #3 I agree with preliminary report from [facility], finalized at 09/13/17, 8:50 AM Central Time
== END 2017-09-13 09:29 | disposition home or self-care (01) ==
LOC: JD.ED 05:35
DX: N20.2 Calculus of kidney with calculus of ureter (principal); Z79.899 Other long term (current) drug therapy
CPT/HCPCS: 74176; 81001; 96361; 96374; 96375; 96376; 99284; J1170; J1885; J2765; J3010; J7040

== ENCOUNTER 2017-09-15 18:52 | Emergency (ER) | payer OTHER ==
--- NOTE | 2017-09-15 19:29 | EDM.PDOC ---
<Amanda Steven - Last Filed: 09/15/17 19:41> ED HPI GENERAL MEDICAL PROBLEM - General Chief Complaint: Flank Pain Stated Complaint: KIDNEY STONE Time Seen by Provider: 09/15/17 19:10 Source of Information: Reports: Patient History Limitations: Reports: No Limitations - History of Present Illness INITIAL COMMENTS - FREE TEXT/NARRATIVE: 37 yo female presents to the ED for R flank pain secondary to a kidney stone. She was seen here 2 days ago and a 2mm stone was seen in the right UVJ. She said she went home and felt much better the first day but has been in pain since she woke up this morning. She reports increased pain throughout the day and nausea. She has been trying to increase her fluid intake despite the nausea and vomiting. She reports the pain is the same today as it was 2 days ago when she was first seen. She last took one percocet almost 3 hours ago and has not had pain relief. She has tried ODT Zofran with no nausea relief. She believes she has had fevers for the past few days. She reports adequate urine output with a small amount of blood, denies dysuria. Onset: Sudden Duration: Constant, Getting Worse (over the past 24 hours) Flank Pain Score (Numeric/FACES): 9 - Related Data Allergies Allergy/AdvReac Type Severity Reaction Status Date / Time No Known Allergies Allergy Verified 09/15/17 19:03 Home Meds: Home Meds Furosemide [Lasix] 20 mg PO DAILY PRN 09/27/14 [History] Topiramate [Topamax] 100 mg PO ASDIRECTED 07/12/17 [History] Ondansetron [Zofran] 4 mg BUCCAL Q6H PRN #5 tab 09/13/17 [Rx] oxyCODONE HCl/Acetaminophen [Percocet 5-325 mg Tablet] 1 - 2 each PO Q4H PRN # 15 tablet 09/13/17 [Rx] Acetaminophen/HYDROcodone [Centenary 325-5 MG] 1 - 2 tab PO Q6H PRN #20 tablet 09/16 [Rx] Ondansetron [Zofran ODT] 1 tab PO Q8H PRN #10 tab.dis 09/16/17 [Rx] Tamsulosin HCl [Flomax] 1 cap PO BEDTIME PRN #5 cap.er.24h 09/16/17 [Rx] Past Medical History Cardiovascular History: Reports: Heart Failure, Syncope, Other (See Below) Other Cardiovascular History: SVT, fluid retention Genitourinary History: Reports: Renal Calculus Neurological History: Reports: Migraines - Past Surgical History HEENT Surgical History: Reports: Eye Surgery Cardiovascular Surgical History: Reports: Cardiac Ablation GI Surgical History: Reports: Appendectomy, Cholecystectomy Female Surgical History: Reports: Hysterectomy, Other (See Below) Social & Family History - Family History Family Medical History: Noncontributory Neurological: Reports: Cerebral Aneurysms Oncologic: Reports: Brain - Tobacco Use Smoking Status *Q: Never Smoker - Caffeine Use Caffeine Use: Reports: Soda - Recreational Drug Use Recreational Drug Use: No - Living Situation & Occupation Living situation: Reports: Occupation: Employed ED ROS GENERAL - Review of Systems Review Of Systems: See Below Constitutional: Reports: Fever, Decreased Appetite. Denies: Chills, Weakness HEENT: Reports: No Symptoms Respiratory: Reports: No Symptoms. Denies: Shortness of Breath, Cough Cardiovascular: Reports: No Symptoms. Denies: Chest Pain, Palpitations Endocrine: Reports: No Symptoms GI/Abdominal: Reports: Decreased Appetite, Nausea, Vomiting. Denies: Constipation, Diarrhea : Reports: Flank Pain (Right flank pain radiating to the back and groin), Hematuria. Denies: Dysuria, Frequency, Urgency, Urinary Retention Musculoskeletal: Reports: Back Pain (Right lower back) Skin: Reports: No Symptoms Neurological: Reports: No Symptoms Psychiatric: Reports: No Symptoms Hematologic/Lymphatic: Reports: No Symptoms Immunologic: Reports: No Symptoms ED EXAM, RENAL/ - Physical Exam Exam: See Below Exam Limited By: No Limitations General Appearance: Alert, WD/WN, Mild Distress (Standing next to the bed, appears uncomfortable) Ears: Normal External Exam, Hearing Grossly Normal Nose: Normal Inspection Throat/Mouth: Normal Inspection Head: Atraumatic, Normocephalic Neck: Normal Inspection, Non-Tender, Full Range of Motion Respiratory/Chest: No Respiratory Distress, Lungs Clear, Normal Breath Sounds Cardiovascular: Normal Peripheral Pulses, Regular Rate, Rhythm, No Edema, No Gallop, No JVD, No Murmur GI/Abdominal: Normal Bowel Sounds, Soft Back Exam: Full Range of Motion, CVA Tenderness (R) Extremities: Normal Inspection, Normal Range of Motion, No Pedal Edema Neurological: Alert, Oriented, Normal Cognition, No Motor/Sensory Deficits Psychiatric: Normal Affect, Anxious Skin Exam: Warm, Dry, Intact, Normal Color, No Rash Course - Vital Signs Last Recorded V/S: Last Vital Signs Temp 36.1 C 09/15/17 19:00 Pulse 116 H 09/15/17 19:00 Resp 18 09/15/17 19:00 BP 157/88 H 09/15/17 19:00 Pulse Ox 100 09/15/17 19:00 - Orders/Labs/Meds Orders: Active Orders 24 hr Category Date Time Status Abdomen Pelvis w Cont [CT] Stat Exams 09/15/17 20:48 Taken UA W/MICROSCOPIC [URIN] Stat Lab 09/15/17 19:55 Ordered Dextrose 5%-0.9% NaCl [Dextrose 5%-Normal Saline] 1,000 Med 09/15/17 19:45 Active ml IV ASDIRECTED Medication Orders Dextrose/Sodium Chloride (Dextrose 5%-Normal Saline) 1,000 mls @ 999 mls/hr IV ASDIRECTED CHANTELL Last Admin: 09/15/17 20:04 Dose: 999 mls/hr Labs: Laboratory Tests 09/15/17 09/15/17 09/15/17 Range/Units 19:15 19:15 19:55 WBC 14.94 H (3.98-10.04) K/mm3 RBC 3.83 L (3.98-5.22) M/mm3 Hgb 11.5 (11.2-15.7) gm/L Hct 34.8 (34.1-44.9) % MCV 90.9 (79.4-94.8) fl MCH 30.0 (25.6-32.2) pg MCHC 33.0 (32.2-35.5) g/dl RDW Std Deviation 41.1 (36.4-46.3) fL Plt Count 256 (182-369) K/mm3 MPV 9.5 (9.4-12.3) fl Neut % (Auto) 71.8 H (34.0-71.1) % Lymph % (Auto) 16.4 L (19.3-51.7) % Dewey % (Auto) 9.0 (4.7-12.5) % Eos % (Auto) 2.3 (0.7-5.8) Baso % (Auto) 0.3 (0.1-1.2) % Neut # (Auto) 10.73 H (1.56-6.13) K/mm3 Lymph # (Auto) 2.45 (1.18-3.74) K/mm3 Dewey # (Auto) 1.34 H (0.24-0.36) K/mm3 Eos # (Auto) 0.34 (0.04-0.36) K/mm3 Baso # (Auto) 0.05 (0.01-0.08) K/mm3 Sodium 138 (136-145) mEq/L Potassium 3.8 (3.5-5.1) mEq/L Chloride 103 (98-107) mEq/L Carbon Dioxide 26 (21-32) mEq/L Anion Gap 12.8 (5-15) BUN 13 (7-18) mg/dL Creatinine 1.2 H (0.55-1.02) mg/dL Est Cr Clr Drug Dosing 57.20 mL/min Estimated GFR (MDRD) 50 (>60) mL/min BUN/Creatinine Ratio 10.8 L (14-18) Glucose 133 H (74-106) mg/dL Calcium 8.5 (8.5-10.1) mg/dL Total Bilirubin 0.6 (0.2-1.0) mg/dL AST 137 H (15-37) U/L ALT 86 H (14-59) U/L Alkaline Phosphatase 102 (46-116) U/L C-Reactive Protein 18.4 H* (<1.0) mg/dL Total Protein 7.2 (6.4-8.2) g/dl Albumin 3.5 (3.4-5.0) g/dl Globulin 3.7 gm/dL Albumin/Globulin Ratio 1.0 (1-2) Urine Color Yellow (Yellow) Urine Appearance Clear (Clear) Urine pH 6.5 (5.0-8.0) Ur Specific [place] 1.020 (1.005-1.030) Urine Protein Trace H (Negative) Urine Glucose (UA) Negative (Negative) Urine Ketones 1+ H (Negative) Urine Occult Blood Trace-intact H (Negative) Urine Nitrite Negative (Negative) Urine Bilirubin Negative (Negative) Urine Urobilinogen 2.0 H (0.2-1.0) Ur Leukocyte Esterase Negative (Negative) Urine RBC 0-5 (0-5) /hpf Urine WBC 0-5 (0-5) /hpf Ur Epithelial Cells 0-5 (0-5) /hpf Urine Bacteria Few (FEW) /hpf Urine Mucus Not seen (FEW) /hpf Meds: Medications Generic Name Dose Route Start Last Admin Trade Name Freq PRN Reason Stop Dose Admin Dextrose/Sodium Chloride 1,000 mls @ 999 mls/hr 09/15/17 19:45 09/15/17 20:04 Dextrose 5%-Normal Saline IV 999 mls/hr ASDIRECTED CHNATELL Administration Discontinued Medications Generic Name Dose Route Start Last Admin Trade Name Freq PRN Reason Stop Dose Admin Diatrizoate Meglum/Diatrizoate Sod 90 ml 09/15/17 22:20 09/15/17 22:41 Gastrografin 37% PO 09/15/17 22:21 90 ml ONETIME ONE Administration Hydromorphone HCl 0.5 mg 09/15/17 19:38 09/15/17 19:54 Dilaudid IVPUSH 09/15/17 19:39 0.5 mg ONETIME ONE Administration Iopamidol 120 ml 09/15/17 22:20 09/15/17 22:41 Isovue-300 (61%) IVPUSH 09/15/17 22:21 120 ml ONETIME ONE Administration Ketorolac Tromethamine 30 mg 09/15/17 20:48 09/15/17 21:15 Toradol IVPUSH 09/15/17 20:49 30 mg ONETIME ONE Administration Metoclopramide HCl 10 mg 09/15/17 23:15 09/15/17 23:47 Reglan IVPUSH 09/15/17 23:16 10 mg ONETIME STA Administration Ondansetron HCl 4 mg 09/15/17 19:39 09/15/17 19:53 Zofran IVPUSH 09/15/17 19:40 4 mg ONETIME ONE Administration Departure - Departure Disposition: Home, Self-Care 01 Clinical Impression: Ureterolithiasis - Discharge Information Prescriptions: Acetaminophen/HYDROcodone [Centenary 325-5 MG] 1 - 2 tab PO Q6H PRN #20 tablet PRN Reason: Pain (Severe 7-10) Ondansetron [Zofran ODT] 1 tab PO Q8H PRN #10 tab.dis PRN Reason: Nausea/Vomiting Tamsulosin HCl [Flomax] 1 cap PO BEDTIME PRN #5 cap.er.24h PRN Reason: Pain Referrals: Gabby Brery MD [Primary Care Provider] - Rick George MD [Ordering Only Provider] - Forms: ED Department Discharge Additional Instructions: You were seen in the emergency room for continued right flank pain, nausea, and vomiting, after being diagnosed with a kidney stone on 09/13/2017. Workup in the ER included blood work, urinalysis, and a repeat CT scan of your abdomen and pelvis. The CT scan confirmed that you have a 1 mm stone at the bottom of your right ureter, just at the bladder. You do not have a urinary tract infection. Based on the size and location of your stone, you will ALMOST CERTAINLY pass this stone on your own. Take [id number] ibuprofen, 2-3 tablets (400-600 mg) every 8 hours, with food, as needed for pain. Take 1 to 2 tablets of the narcotic pain reliever Centenary up to every 6 hours, as needed for pain not relieved by ibuprofen. If you take Centenary, do not drive for 10 hours after taking. Centenary will likely cause constipation, so consider taking a stool softener. You have been started on the anti-spasm medicine Flomax. Take one capsule every evening, starting tomorrow evening, 09/16/2017. Dissolve one tablet of the anti-nausea medicine Zofran on your tongue up to every 8 hours, as needed for nausea/vomiting. Stay adequately hydrated. Strain all of your urine. If you capture the stone, take it to your doctor for analysis. Follow-up with your PCP, Dr. Dubon, at your previously scheduled appointment this coming , 09/18/2017. If you continue to have pain after one week, please follow-up with the Urologist Dr. George. If any other problems, please do not hesitate to return to the ER. <Guido Sherwood - Last Filed: 09/15/17 22:45> ED ROS GENERAL - Review of Systems Review Of Systems: See Below ED EXAM, RENAL/ - Physical Exam Exam: See Below GI/Abdominal: Tender (along the mcburneys point and right flank. ) Course - Re-Assessments/Exams Free Text/Narrative Re-Assessment/Exam: I have personally evaluated myself. Agree with HPI and physical findings documented by Kerri WAGNER. Labs reviewed: White blood cell count 14.94, hemoglobin 11.5, neutrophil percentage is 71.8, neutrophil number is 10.73, sodium 138, potassium 3.8, creatinine 1.2, glucose 133, AST 137, ALT 86, CRP is 18. UA: trace protein, 1+ ketones, and occult blood trace. Will order CT of the abdomen and pelvis with IV contrast. I have also ordered Toradol 30 mg IVP for pain. 09/15/17 22:34 CT the abdomen and pelvis has not been obtained yet. I have discussed the patient with Dr. Booker. He will assume care. <Ruben Booker - Last Filed: 09/16/17 00:27> Course - Re-Assessments/Exams Free Text/Narrative Re-Assessment/Exam: 09/16/17 00:01 Case received from BRIA Vilchis. CT of the abdomen and pelvis with contrast is read by [facility] as: A 1 mm stone is present within the right ureterovesicular junction resulting in moderate hydroureteronephrosis, edematous swelling of the right kidney, and perinephric/periureteral fat stranding. 09/16/17 00:11 Test results discussed with the patient. As above, the patient has a 1 mm stone at the UVJ. She will almost certainly pass the stone on her own. When seen on , she was discharged home with a prescription for Percocet 5/325 #15 and Zofran 4 mg #5, but was not given a strainer. For tonight's purposes, we will provide the patient with a urine strainer. I will write prescriptions for Centenary and Zofran, and start her on Flomax. I will refer her to Dr. George, with the stipulation that he would not likely want to see her unless she was unable to pass this stone after about a week or so. She states that she has an appointment to follow-up with her PCP, Dr. Dubon, this coming , 2017. Departure - Departure Time of Disposition: 00:15 Condition: Fair
[2017-09-15] MEDS ORDERED: HYDROmorphone 0.5 MG/0.5 ML SYRINGE IVPUSH ONE (19:38)
[2017-09-15] MEDS ORDERED: Ondansetron 4 MG/2 ML SDV IVPUSH ONE (19:39)
[2017-09-15] MEDS ORDERED: Dextrose 5%-0.9% NaCl 1,000 ML IV SCH (19:45)
[2017-09-15] MEDS ORDERED: Ketorolac 30 MG/ML SDV IVPUSH ONE (20:48)
[2017-09-15] MEDS ORDERED: Diatrizoate Meglumine/Diatrizoate Sodium 37% 120 ML Bottle PO ONE (22:20)
[2017-09-15] MEDS ORDERED: Iopamidol 612 MG/ML 150 ML Bottle IVPUSH ONE (22:20)
[2017-09-15] MEDS ORDERED: Metoclopramide 10 MG/2 ML SDV IVPUSH STA (23:15)
[2017-09-16] MEDS ORDERED: Tamsulosin 0.4 MG Cap.ER PO ONE (00:15)
[2017-09-16 00:45] VITALS: BP 131/74
--- NOTE | 2017-09-16 08:46 | CT ---
CT abdomen and pelvis Technique: Multiple axial sections were obtained from above the dome of the diaphragm inferiorly through the pubic symphysis. Intravenous and oral contrast was utilized. Delayed images were obtained through the bladder. Comparison: Prior renal stone CT exam of 09/13/17. Findings: 2.5 mm stone is noted within distal right ureter near the UVJ. This ureteral stone appears fairly similar to prior exam. Right ureter is dilated as well as the right kidney collecting system being dilated. Delayed perfusion is noted of the right kidney compatible with the obstruction. No other abnormal calcifications are seen within the kidneys or within the ureters. Visualized lung bases show nothing acute. Liver and spleen shows no focal parenchymal abnormality. Surgical clips are seen from prior cholecystectomy. Pancreas is within normal limits. Aorta shows no aneurysmal dilatation. No retroperitoneal adenopathy or mesenteric abnormalities are seen. Delayed images shows contrast within the left ureter and bladder. Appendix is not visualized. No free fluid or inflammatory change is seen. Bone window settings were reviewed which appear within normal limits for the patient's age. Impression: 1. 2.5 mm distal right ureteral stone at the UVJ causing ureteral obstruction as noted above. This finding is fairly stable from previous CT exam. 2. No additional abnormality is seen on CT study of the abdomen and pelvis. Diagnostic code #3 Agree with preliminary report issued by [employer] ([facility] preliminary report dictated on 09/16/17, 12:39 AM Central Time)
== END 2017-09-16 00:35 | disposition home or self-care (01) ==
LOC: JD.ED 18:52
DX: N20.1 Calculus of ureter (principal); I50.9 Heart failure, unspecified; Z79.899 Other long term (current) drug therapy
CPT/HCPCS: 36415; 74177; 80053; 81001; 85025; 86140; 96361; 96374; 96375; 99284; J1170; J1885; J2405; J2765; J7042; Q9963; Q9967

== ENCOUNTER 2019-05-26 08:10 | Emergency (ER) | payer BC, OTHER ==
[2019-05-26] MEDS ORDERED: Sodium Chloride 0.9% 10 ML Syringe FLUSH PRN (08:31)
[2019-05-26] MEDS ORDERED: HYDROmorphone 1 MG/ML Syringe IVPUSH ONE (08:35)
[2019-05-26] MEDS ORDERED: Sodium Chloride 0.9% 1,000 ML IV SCH (08:45)
--- NOTE | 2019-05-26 08:45 | EDM.PDOC ---
ED HPI GENERAL MEDICAL PROBLEM - General Chief Complaint: Cardiovascular Problem Stated Complaint: CHEST PAIN/DIZZY Time Seen by Provider: 05/26/19 08:28 Source of Information: Reports: Patient, Family History Limitations: Reports: No Limitations - History of Present Illness INITIAL COMMENTS - FREE TEXT/NARRATIVE: The patient presents with chest pain and headache. She has a history of SVT and she had an ablation. That has been helping except for the past 3 months she has been having more episodes. The past few days she has been having chest pain and this morning she went into SVT and she passed out and hit her head. She is in a NSR now. She still has some chest pain. She has no shortness of breath. She has a headache. She does have a history of migraines. She has no numbness or weakness. She has no fever, chills, cough, congestion, runny nose, abdominal pain, nausea or vomiting. Onset: Gradual Duration: Day(s): Location: Reports: Chest Quality: Reports: Sharp Severity: Moderate Improves with: Reports: None Worsens with: Reports: None Associated Symptoms: Reports: Chest Pain, Headaches. Denies: Cough, Fever/ Chills, Nausea/Vomiting, Shortness of Breath Chest Pain Score (Numeric/FACES): 5 Headache Pain Score (Numeric/FACES): 8 - Related Data Allergies Allergy/AdvReac Type Severity Reaction Status Date / Time No Known Allergies Allergy Verified 09/15/17 19:03 Home Meds: Home Meds Furosemide [Lasix] 20 mg PO DAILY PRN 09/27/14 [History] Topiramate [Topamax] 100 mg PO ASDIRECTED 07/12/17 [History] Ondansetron [Zofran] 4 mg BUCCAL Q6H PRN #5 tab 09/13/17 [Rx] oxyCODONE HCl/Acetaminophen [Percocet 5-325 mg Tablet] 1 - 2 each PO Q4H PRN # 15 tablet 09/13/17 [Rx] Acetaminophen/HYDROcodone [[place] 325-5 MG] 1 - 2 tab PO Q6H PRN #20 tablet 09/16 [Rx] Ondansetron [Zofran ODT] 1 tab PO Q8H PRN #10 tab.dis 09/16/17 [Rx] Tamsulosin HCl [Flomax] 1 cap PO BEDTIME PRN #5 cap.er.24h 09/16/17 [Rx] Metoprolol Succinate 25 mg PO DAILY #30 tab.er.24h 05/26/19 [Rx] Past Medical History Cardiovascular History: Reports: Heart Failure, Syncope, Other (See Below) Other Cardiovascular History: SVT, fluid retention Genitourinary History: Reports: Renal Calculus Neurological History: Reports: Migraines - Past Surgical History HEENT Surgical History: Reports: Eye Surgery Cardiovascular Surgical History: Reports: Cardiac Ablation GI Surgical History: Reports: Appendectomy, Cholecystectomy Female Surgical History: Reports: Hysterectomy, Other (See Below) Social & Family History - Family History Family Medical History: Noncontributory Neurological: Reports: Cerebral Aneurysms Oncologic: Reports: Brain - Caffeine Use Caffeine Use: Reports: Soda - Living Situation & Occupation Living situation: Reports: Occupation: Employed ED ROS GENERAL - Review of Systems Review Of Systems: See Below Constitutional: Reports: No Symptoms HEENT: Reports: No Symptoms Respiratory: Reports: No Symptoms Cardiovascular: Reports: Chest Pain, Palpitations Endocrine: Reports: No Symptoms GI/Abdominal: Reports: No Symptoms : Reports: No Symptoms Musculoskeletal: Reports: No Symptoms ED EXAM, GENERAL - Physical Exam Exam: See Below Exam Limited By: No Limitations General Appearance: Alert, No Apparent Distress Ears: Normal External Exam Nose: Normal Inspection Head: Normocephalic Neck: Normal Inspection Respiratory/Chest: No Respiratory Distress, Lungs Clear, Normal Breath Sounds Cardiovascular: Regular Rate, Rhythm, No Edema, No Murmur GI/Abdominal: Soft, Non-Tender, No Organomegaly, No Mass Extremities: Normal Inspection Neurological: Alert, Oriented, No Motor/Sensory Deficits EKG INTERPRETATION EKG Date: 05/26/19 Time: 08:20 Rhythm: NSR Rate (Beats/Min): 85 Lutz: Normal P-Wave: Present QRS: Normal ST-T: Normal QT: Normal Course - Vital Signs Last Recorded V/S: Last Vital Signs Temp 98.2 F 05/26/19 08:15 Pulse 88 05/26/19 08:15 Resp 16 05/26/19 08:15 BP 146/85 H 05/26/19 08:15 Pulse Ox 97 05/26/19 08:15 - Orders/Labs/Meds Orders: Active Orders 24 hr Category Date Time Status Cardiac Monitoring [RC] . DIRECTED Care 05/26/19 08:31 Active EKG Documentation Completion [RC] STAT Care 05/26/19 08:34 Active Peripheral IV Care [RC] . DIRECTED Care 05/26/19 08:34 Active Chest 1V Frontal [CR] Stat Exams 05/26/19 08:34 Taken Sodium Chloride 0.9% [Normal Saline] 1,000 ml Med 05/26/19 08:45 Active IV ASDIRECTED Sodium Chloride 0.9% [Saline Flush] Med 05/26/19 08:31 Active 10 ml FLUSH ASDIRECTED PRN Peripheral IV Insertion Adult [OM.PC] Stat Oth 05/26/19 08:31 Ordered Medication Orders Sodium Chloride (Normal Saline) 1,000 mls @ 125 mls/hr IV ASDIRECTED CHANTELL Last Admin: 05/26/19 08:52 Dose: 125 mls/hr Sodium Chloride (Saline Flush) 10 ml FLUSH ASDIRECTED PRN PRN Reason: Keep Vein Open Last Admin: 05/26/19 08:52 Dose: 10 ml Labs: Laboratory Tests 05/26/19 05/26/19 05/26/19 Range/Units 08:25 08:25 08:25 WBC 7.92 (3.98-10.04) K/mm3 RBC 4.52 (3.98-5.22) M/mm3 Hgb 13.3 D (11.2-15.7) gm/dl Hct 40.7 (34.1-44.9) % MCV 90.0 (79.4-94.8) fl MCH 29.4 (25.6-32.2) pg MCHC 32.7 (32.2-35.5) g/dl RDW Std Deviation 41.2 (36.4-46.3) fL Plt Count 315 (182-369) K/mm3 MPV 9.1 L (9.4-12.3) fl Neut % (Auto) 52.7 (34.0-71.1) % Lymph % (Auto) 29.4 (19.3-51.7) % [place]od % (Auto) 9.5 (4.7-12.5) % Eos % (Auto) 7.7 H (0.7-5.8) Baso % (Auto) 0.6 (0.1-1.2) % Neut # (Auto) 4.17 (1.56-6.13) K/mm3 Lymph # (Auto) 2.33 (1.18-3.74) K/mm3 [place]cleod # (Auto) 0.75 H (0.24-0.36) K/mm3 Eos # (Auto) 0.61 H (0.04-0.36) K/mm3 Baso # (Auto) 0.05 (0.01-0.08) K/mm3 D-Dimer, Quantitative 0.28 (0.19-0.50) mg/L Sodium 142 (136-145) mEq/L Potassium 4.2 (3.5-5.1) mEq/L Chloride 107 (98-107) mEq/L Carbon Dioxide 23 (21-32) mEq/L Anion Gap 16.2 H (5-15) BUN 7 (7-18) mg/dL Creatinine 0.9 (0.55-1.02) mg/dL Est Cr Clr Drug Dosing 74.77 mL/min Estimated GFR (MDRD) > 60 (>60) mL/min BUN/Creatinine Ratio 7.8 L (14-18) Glucose 112 H (74-106) mg/dL Calcium 9.6 (8.5-10.1) mg/dL Total Bilirubin 0.3 (0.2-1.0) mg/dL AST 18 (15-37) U/L ALT 30 (14-59) U/L Alkaline Phosphatase 68 (46-116) U/L Troponin I < 0.017 (0.00-0.056) ng/mL Total Protein 7.6 (6.4-8.2) g/dl Albumin 3.8 (3.4-5.0) g/dl Globulin 3.8 gm/dL Albumin/Globulin Ratio 1.0 (1-2) TSH 3rd Generation 2.931 (0.358-3.74) uIU/mL Meds: Medications Generic Name Dose Route Start Last Admin Trade Name Freq PRN Reason Stop Dose Admin Sodium Chloride 1,000 mls @ 125 mls/hr 05/26/19 08:45 05/26/19 08:52 Normal Saline IV 125 mls/hr ASDIRECTED CHANTELL Administration Sodium Chloride 10 ml 05/26/19 08:31 05/26/19 08:52 Saline Flush FLUSH 10 ml ASDIRECTED PRN Administration Keep Vein Open Discontinued Medications Generic Name Dose Route Start Last Admin Trade Name Jannette PRN Reason Stop Dose Admin Diphenhydramine HCl 50 mg 05/26/19 08:55 05/26/19 09:07 Benadryl IVPUSH 05/26/19 08:56 50 mg ONETIME ONE Administration Hydromorphone HCl 1 mg 05/26/19 08:35 05/26/19 08:50 Dilaudid IVPUSH 05/26/19 08:36 1 mg ONETIME ONE Administration Hydromorphone HCl 0.5 mg 05/26/19 09:40 05/26/19 10:12 Dilaudid IVPUSH 05/26/19 09:41 0.5 mg ONETIME ONE Administration Ketorolac Tromethamine 30 mg 05/26/19 09:39 05/26/19 10:10 Toradol IVPUSH 05/26/19 09:40 30 mg ONETIME ONE Administration Metoclopramide HCl 10 mg 05/26/19 08:55 05/26/19 09:05 Reglan IVPUSH 05/26/19 08:56 10 mg ONETIME ONE Administration - Re-Assessments/Exams Free Text/Narrative Re-Assessment/Exam: 05/26/19 08:47 I ordered an IV NS at 125mL/hr, dilaudid 1mg IV, labs, EKG, CXR and a CT of her head. 05/26/19 10:[address] of her head looks good. Her EKG shows a NSR with no acute changes. Her CBC and CMP look good. Her troponin and TSH are normal. She still has a headache so I ordered more dilaudid 0.5mg IV and toradol 30mg IV. Departure - Departure Time of Disposition: 10:35 Disposition: Home, Self-Care 01 Condition: Good Clinical Impression: SVT (supraventricular tachycardia) Chest pain Qualifiers: Chest pain type: unspecified Qualified Code(s): R07.9 - Chest pain, unspecified Headache Qualifiers: Headache type: unspecified Headache chronicity pattern: acute headache Intractability: not intractable Qualified Code(s): R51 - Headache Syncope Qualifiers: Syncope type: unspecified Qualified Code(s): R55 - Syncope and collapse Prescriptions: Metoprolol Succinate 25 mg PO DAILY #30 tab.er.24h Referrals: Gabby Berry MD [Primary Care Provider] - Forms: ED Department Discharge Additional Instructions: Take metoprolol 25mg daily. 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 Please return if you are worse. Sepsis Event Note - Evaluation Sepsis Screening Result: No Definite Risk - Focused Exam Vital Signs: Vital Signs Temp Pulse Resp BP Pulse Ox 05/26/19 08:15 98.2 F 88 16 146/85 H 97 Date Exam was Performed: 05/26/19 Time Exam was Performed: 10:27 - My Orders Last 24 Hours: My Active Orders 05/26/19 08:31 Cardiac Monitoring [RC] . DIRECTED Sodium Chloride 0.9% [Saline Flush] 10 ml FLUSH ASDIRECTED PRN Peripheral IV Insertion Adult [OM.PC] Stat 05/26/19 08:34 EKG Documentation Completion [RC] STAT Peripheral IV Care [RC] . DIRECTED Chest 1V Frontal [CR] Stat 05/26/19 08:45 Sodium Chloride 0.9% [Normal Saline] 1,000 ml IV ASDIRECTED - Assessment/Plan Last 24 Hours: My Active Orders 05/26/19 08:31 Cardiac Monitoring [RC] . DIRECTED Sodium Chloride 0.9% [Saline Flush] 10 ml FLUSH ASDIRECTED PRN Peripheral IV Insertion Adult [OM.PC] Stat 05/26/19 08:34 EKG Documentation Completion [RC] STAT Peripheral IV Care [RC] . DIRECTED Chest 1V Frontal [CR] Stat 05/26/19 08:45 Sodium Chloride 0.9% [Normal Saline] 1,000 ml IV ASDIRECTED
[2019-05-26] MEDS ORDERED: Metoclopramide 10 MG/2 ML SDV IVPUSH ONE (08:55)
[2019-05-26] MEDS ORDERED: diphenhydrAMINE 50 MG/ML SDV IVPUSH ONE (08:55)
--- NOTE | 2019-05-26 09:07 | CT ---
Head CT Technique: Multiple axial sections through the brain were obtained. Intravenous contrast was not utilized. Comparison: Prior head CT study of 08/03/13. Findings: Ventricles along with basal cisterns and sulci over the convexities are within normal limits for the patient's age. No abnormal parenchymal densities are seen. No evidence of intracranial hemorrhage. No midline shift or mass effect is seen. Bone window settings were reviewed. Visualized mastoid sinuses and paranasal sinuses are clear. No acute calvarial abnormality is identified. Impression: 1. Nothing acute is appreciated on noncontrast head CT exam. 2. No change appreciated from previous exam. Diagnostic code #1 This report was dictated in [place] Standard Time
[2019-05-26] MEDS ORDERED: Ketorolac 30 MG/ML SDV IVPUSH ONE (09:39)
[2019-05-26] MEDS ORDERED: HYDROmorphone 0.5 MG/0.5 ML Syringe IVPUSH ONE (09:40)
[2019-05-26 10:46] VITALS: BP 112/69; PULSE 64
--- NOTE | 2019-05-26 13:53 | CR ---
Chest: Frontal view of the chest was obtained utilizing portable technique. Comparison: Prior chest x-ray of 10/22/12. Heart size and mediastinum are normal. Lungs are clear. Bony structures are unremarkable. Old left clavicle fracture is noted. Impression: 1. Nothing acute is seen on portable chest x-ray. Diagnostic code #1 This report was dictated in [place] Standard Time
== END 2019-05-26 10:43 | disposition home or self-care (01) ==
LOC: JD.ED 08:10
DX: I47.1 Supraventricular tachycardia (principal); R55 Syncope and collapse; R51 Headache; Z90.49 Acquired absence of other specified parts of digestive tract; Z79.899 Other long term (current) drug therapy
CPT/HCPCS: 36415; 70450; 71045; 80053; 84443; 84484; 85025; 85379; 93005; 96361; 96374; 96375; 96376; 99285; J1170; J1200; J1885; J2765; J7030; 93010; 99284

== ENCOUNTER 2020-10-31 12:38 | Emergency (ER) | payer BC ==
[2020-10-31 12:52] VITALS: BP 131/97; PULSE 56
[2020-10-31] MEDS ORDERED: Sodium Chloride 0.9% 10 ML Syringe FLUSH PRN (13:05)
[2020-10-31] MEDS ORDERED: Furosemide 40 MG/4 ML VIAL IVPUSH ONE (13:08)
[2020-10-31] MEDS ORDERED: Ondansetron 4 MG/2 ML SDV IVPUSH ONE (13:34)
[2020-10-31] MEDS ORDERED: HYDROmorphone 1 MG/ML Syringe IVPUSH ONE ×2 (13:35→14:34)
--- NOTE | 2020-10-31 14:19 | CT ---
CT abdomen and pelvis Technique: Multiple axial sections were obtained from above the dome of the diaphragm inferiorly through the pubic symphysis. Intravenous and oral contrast were not utilized. Study has been performed as a ureteral stone protocol. Comparison: Prior CT abdomen and pelvis study of 09/15/17. Findings: Kidneys show no abnormal calcifications. No hydronephrosis is seen of either kidney. Ureters show no ureteral calculi. No bladder calculi are seen. Visualized lung bases show nothing acute. Noncontrast appearance of the liver shows no focal abnormality. Surgical clips are noted from prior cholecystectomy. Spleen size is normal. Pancreas shows no discrete abnormality. Adrenal glands show no nodule. Abdominal aorta shows no aneurysm. No retroperitoneal adenopathy or mesenteric abnormalities are seen. Surgical clips are seen off the cecum presumably due to prior appendectomy. No pelvic mass or adenopathy is seen. No free fluid or inflammatory change is appreciated. Bone window settings were reviewed. No acute osseous finding is appreciated. Impression: 1. No renal calculi, ureteral dilatation or ureteral stone is seen. 2. Previous cholecystectomy. 3. Nothing acute is appreciated on noncontrast CT study of the abdomen and pelvis. Diagnostic code #2
[2020-10-31] MEDS ORDERED: Ketorolac 30 MG/ML SDV IVPUSH ONE (14:34)
[2020-10-31] MEDS ORDERED: diphenhydrAMINE 50 MG/ML SDV IVPUSH ONE (14:34)
[2020-10-31] MEDS ORDERED: Metoclopramide 10 MG/2 ML SDV IVPUSH ONE (14:34)
--- NOTE | 2020-10-31 15:26 | EDM.PDOC ---
ED HPI GENERAL MEDICAL PROBLEM - General Chief Complaint: Cardiovascular Problem Stated Complaint: SWELLING AND CHEST PAIN Time Seen by Provider: 10/31/20 12:58 Source of Information: Reports: Patient History Limitations: Reports: No Limitations - History of Present Illness INITIAL COMMENTS - FREE TEXT/NARRATIVE: The patient presents with chest pain and shortness of breath. This started today but she has been having shortness of breath for a few days. She has a history of CHF and is on lasix. She had swelling in her legs today and in her face this morning. She has heaviness in the chest and worse when she lays down. She has a history also of SVT with ablations. She thinks she has had some episodes the past couple of days. She has no fever, chills, cough, abdominal pain, nausea or vomiting. Onset: Gradual Duration: Day(s): Location: Reports: Chest Quality: Reports: Other (heaviness) Severity: Moderate Improves with: Reports: None Worsens with: Reports: None Associated Symptoms: Reports: Chest Pain, Shortness of Breath. Denies: Cough, Fever/Chills, Headaches, Nausea/Vomiting Middle Chest Pain Score (Numeric/FACES): 7 - Related Data Allergies Allergy/AdvReac Type Severity Reaction Status Date / Time No Known Allergies Allergy Verified 10/31/20 12:52 Home Meds: Home Meds Furosemide [Lasix] 10 mg PO DAILY PRN 09/27/14 [History] Topiramate [Topamax] 100 mg PO DAILY 07/12/17 [History] Galcanezumab-Gnlm [Emgality Syringe] 1 injection INJECT ASDIRECTED 10/31/20 [History] Hydrocodone/Acetaminophen [Hydrocodone-Acetamin 5-325 mg] 1 - 2 each PO Q6H PRN #6 tablet 10/31/20 [Rx] Metoprolol Succinate 50 mg PO DAILY 10/31/20 [History] Pantoprazole [ProTONIX] 40 mg PO DAILY 10/31/20 [History] buPROPion HCL [Bupropion Xl] 150 mg PO DAILY 10/31/20 [History] Past Medical History Cardiovascular History: Reports: Heart Failure, Syncope, Other (See Below) Other Cardiovascular History: SVT, fluid retention Respiratory History: Reports: Other (See Below) Other Respiratory History: PPH--primary pulmonary HTN Gastrointestinal History: Reports: Other (See Below) Other Gastrointestinal History: stomach ulcers, esophagitis Genitourinary History: Reports: Renal Calculus [employer]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 Dermatologic History: Reports: Other (See Below) Other Dermatologic History: skin cancer - Infectious Disease History Infectious Disease History: Reports: Chicken Pox - Past Surgical History HEENT Surgical History: Reports: Eye Surgery Cardiovascular Surgical History: Reports: Cardiac Ablation Other Cardiovascular Surgeries/Procedures: ablation GI Surgical History: Reports: Appendectomy, Cholecystectomy Female Surgical History: Reports: Hysterectomy, Other (See Below) Social & Family History - Family History Family Medical History: No Pertinent Family History Neurological: Reports: Cerebral Aneurysms Oncologic: Reports: Brain - Tobacco Use Tobacco Use Status *Q: Never Tobacco User Second Hand Smoke Exposure: No - Caffeine Use Caffeine Use: Reports: Soda - Recreational Drug Use Recreational Drug Use: No - Living Situation & Occupation Living situation: Reports: Occupation: Employed ED ROS GENERAL - Review of Systems Review Of Systems: See Below Constitutional: Reports: No Symptoms HEENT: Reports: No Symptoms Respiratory: Reports: Shortness of Breath Cardiovascular: Reports: Chest Pain, Edema Endocrine: Reports: No Symptoms GI/Abdominal: Reports: No Symptoms : Reports: No Symptoms ED EXAM, GENERAL - Physical Exam Exam: See Below Exam Limited By: No Limitations General Appearance: Alert, No Apparent Distress Ears: Normal External Exam Nose: Normal Inspection Head: Atraumatic, Normocephalic Neck: Normal Inspection Respiratory/Chest: No Respiratory Distress, Decreased Breath Sounds Cardiovascular: Regular Rate, Rhythm, No Edema, No Murmur GI/Abdominal: Soft, Non-Tender, No Organomegaly, No Mass Back Exam: Normal Inspection Extremities: Pedal Edema #1 Interpretation EKG Date: 10/31/20 Time: 12:50 Rhythm: Other (sins bradycardia) Rate (Beats/Min): 57 [place]: Normal P-Wave: Present QRS: Normal ST-T: Normal QT: Normal Course - Vital Signs Last Recorded V/S: Last Vital Signs Temp 97 F 10/31/20 12:49 Pulse 56 L 10/31/20 12:49 Resp 16 10/31/20 12:49 BP 131/97 H 10/31/20 12:49 Pulse Ox 100 10/31/20 12:49 - Orders/Labs/Meds Orders: Active Orders 24 hr Category Date Time Status Cardiac Monitoring [RC] . DIRECTED Care 10/31/20 13:05 Active EKG 12 Lead [EKG Documentation Completion] [RC] STAT Care 10/31/20 12:56 Active Peripheral IV Care [RC] . DIRECTED Care 10/31/20 13:06 Active Chest 1V Frontal [CR] Stat Exams 10/31/20 13:06 Taken Sodium Chloride 0.9% [Saline Flush] Med 10/31/20 13:05 Active 10 ml FLUSH ASDIRECTED PRN Peripheral IV Insertion Adult [OM.PC] Stat Oth 10/31/20 13:05 Ordered Medication Orders Sodium Chloride (Sodium Chloride 0.9% 10 Ml Syringe) 10 ml FLUSH ASDIRECTED PRN PRN Reason: Keep Vein Open Last Admin: 10/31/20 13:18 Dose: 10 ml Documented by: FIDENCIO Labs: Laboratory Tests 10/31/20 10/31/20 10/31/20 Range/Units 12:50 12:50 12:50 WBC 7.77 (3.98-10.04) K/mm3 RBC 3.83 L (3.98-5.22) M/mm3 Hgb 11.9 (11.2-15.7) gm/dl Hct 36.7 (34.1-44.9) % MCV 95.8 H D (79.4-94.8) fl MCH 31.1 (25.6-32.2) pg MCHC 32.4 (32.2-35.5) g/dl RDW Std Deviation 44.5 (36.4-46.3) fL Plt Count 328 (182-369) K/mm3 MPV 9.2 L (9.4-12.3) fl Neut % (Auto) 60.6 (34.0-71.1) % Lymph % (Auto) 24.6 (19.3-51.7) % [place] % (Auto) 6.2 (4.7-12.5) % Eos % (Auto) 7.7 H (0.7-5.8) Baso % (Auto) 0.6 (0.1-1.2) % Neut # (Auto) 4.71 (1.56-6.13) K/mm3 Lymph # (Auto) 1.91 (1.18-3.74) K/mm3 [place] # (Auto) 0.48 H (0.24-0.36) K/mm3 Eos # (Auto) 0.60 H (0.04-0.36) K/mm3 Baso # (Auto) 0.05 (0.01-0.08) K/mm3 D-Dimer, Quantitative 0.43 (0.19-0.50) mg/L Sodium 144 (136-145) mEq/L Potassium 3.7 (3.5-5.1) mEq/L Chloride 112 H (98-107) mEq/L Carbon Dioxide 22 (21-32) mEq/L Anion Gap 13.7 (5-15) BUN 10 (7-18) mg/dL Creatinine 0.7 (0.55-1.02) mg/dL Est Cr Clr Drug Dosing TNP Estimated GFR (MDRD) > 60 (>60) mL/min BUN/Creatinine Ratio 14.3 (14-18) Glucose 109 H (70-99) mg/dL Calcium 8.1 L D (8.5-10.1) mg/dL Total Bilirubin 0.2 (0.2-1.0) mg/dL AST 24 (15-37) U/L ALT 37 (14-59) U/L Alkaline Phosphatase 72 (46-116) U/L Troponin I < 0.017 (0.00-0.056) ng/mL NT-Pro-B Natriuret Pep (0-125) pg/mL Total Protein 6.3 L (6.4-8.2) g/dl Albumin 3.2 L (3.4-5.0) g/dl Globulin 3.1 gm/dL Albumin/Globulin Ratio 1.0 (1-2) SARS-CoV-2 RNA (YVON) (NEGATIVE) 10/31/20 10/31/20 Range/Units 12:50 13:16 WBC (3.98-10.04) K/mm3 RBC (3.98-5.22) M/mm3 Hgb (11.2-15.7) gm/dl Hct (34.1-44.9) % MCV (79.4-94.8) fl MCH (25.6-32.2) pg MCHC (32.2-35.5) g/dl RDW Std Deviation (36.4-46.3) fL Plt Count (182-369) K/mm3 MPV (9.4-12.3) fl Neut % (Auto) (34.0-71.1) % Lymph % (Auto) (19.3-51.7) % [place] % (Auto) (4.7-12.5) % Eos % (Auto) (0.7-5.8) Baso % (Auto) (0.1-1.2) % Neut # (Auto) (1.56-6.13) K/mm3 Lymph # (Auto) (1.18-3.74) K/mm3 [place] # (Auto) (0.24-0.36) K/mm3 Eos # (Auto) (0.04-0.36) K/mm3 Baso # (Auto) (0.01-0.08) K/mm3 D-Dimer, Quantitative (0.19-0.50) mg/L Sodium (136-145) mEq/L Potassium (3.5-5.1) mEq/L Chloride (98-107) mEq/L Carbon Dioxide (21-32) mEq/L Anion Gap (5-15) BUN (7-18) mg/dL Creatinine (0.55-1.02) mg/dL Est Cr Clr Drug Dosing Estimated GFR (MDRD) (>60) mL/min BUN/Creatinine Ratio (14-18) Glucose (70-99) mg/dL Calcium (8.5-10.1) mg/dL Total Bilirubin (0.2-1.0) mg/dL AST (15-37) U/L ALT (14-59) U/L Alkaline Phosphatase (46-116) U/L Troponin I (0.00-0.056) ng/mL NT-Pro-B Natriuret Pep 1025 H (0-125) pg/mL Total Protein (6.4-8.2) g/dl Albumin (3.4-5.0) g/dl Globulin gm/dL Albumin/Globulin Ratio (1-2) SARS-CoV-2 RNA (YVON) Negative (NEGATIVE) Meds: Medications Generic Name Dose Route Start Last Admin Trade Name Jannette PRN Reason Stop Dose Admin Sodium Chloride 10 ml 10/31/20 13:05 10/31/20 13:18 Sodium Chloride 0.9% 10 Ml Syringe FLUSH 10 ml ASDIRECTED PRN Administration Keep Vein Open Discontinued Medications Generic Name Dose Route Start Last Admin Trade Name Jannette PRN Reason Stop Dose Admin Diphenhydramine HCl 25 mg 10/31/20 14:34 10/31/20 14:49 Diphenhydramine 50 Mg/Ml Sdv IVPUSH 10/31/20 14:35 25 mg ONETIME ONE Administration Furosemide 40 mg 10/31/20 13:08 10/31/20 13:17 Furosemide 40 Mg/4 Ml Vial IVPUSH 10/31/20 13:09 40 mg NOW ONE Administration Hydromorphone HCl 1 mg 10/31/20 13:35 10/31/20 13:40 Hydromorphone 1 Mg/Ml Syringe IVPUSH 10/31/20 13:36 1 mg ONETIME ONE Administration Hydromorphone HCl 1 mg 10/31/20 14:34 10/31/20 14:48 Hydromorphone 1 Mg/Ml Syringe IVPUSH 10/31/20 14:35 1 mg ONETIME ONE Administration Ketorolac Tromethamine 30 mg 10/31/20 14:34 10/31/20 14:49 Ketorolac 30 Mg/Ml Sdv IVPUSH 10/31/20 14:35 30 mg ONETIME ONE Administration Metoclopramide HCl 10 mg 10/31/20 14:34 10/31/20 14:48 Metoclopramide 10 Mg/2 Ml Sdv IVPUSH 10/31/20 14:35 10 mg ONETIME ONE Administration Ondansetron HCl 4 mg 10/31/20 13:34 10/31/20 13:40 Ondansetron 4 Mg/2 Ml Sdv IVPUSH 10/31/20 13:35 4 mg ONETIME ONE Administration - Re-Assessments/Exams Free Text/Narrative Re-Assessment/Exam: 10/31/20 15:26 I ordered an IV saline lock, EKG, CXR, labs, and lasix 40mg IV. Her EKG shows a sinus bradycardia with no acute changes. Her CXR shows nothing acute. Her CBC was normal. Her D-dimer was normal. Her CMP was normal. Her troponin was negative. Her BNP was elevated at 1025. Her COVID is negative. She developed severe left flank pain, nausea and vomiting while here in the department. I ordered dilaudid 1mg IV, zofran 4mg IV and a CT of her abdomen and pelvis without contrast to look for a kidney stone. The CT shows no renal calculi, ureteral dilatation or ureteral stone is seen. Previous cholecystectomy. Nothing acute is appreciated on noncontrast CT study of the abdomen and pelvis. She feels better. She has a CHF exacerbation. I am not sure what caused the severe flank pain. I will have her double up on her lasix for a few days and give her some hydrocodone as needed for any more pain. Departure - Departure Time of Disposition: 15:35 Disposition: Home, Self-Care 01 Condition: Fair Clinical Impression: Atypical chest pain, Left flank pain CHF exacerbation Qualifiers: Heart failure type: unspecified Qualified Code(s): I50.9 - Heart failure, unspecified Prescriptions: Hydrocodone/Acetaminophen [Hydrocodone-Acetamin 5-325 mg] 1 - 2 each PO Q6H PRN #6 tablet PRN Reason: Pain Referrals: Gabby Berry MD [Primary Care Provider] - 1 Week Additional Instructions: Double up on your lasix for 3 to 5 days. Take the rest of your medicines as prescribed. Take tylenol or motrin for pain. If that does not help, try the hydrocodone. Follow up with your doctor. Please return if you are worse. Sepsis Event Note (ED) - Evaluation Sepsis Screening Result: No Definite Risk - Focused Exam Vital Signs: Vital Signs Temp Pulse Resp BP Pulse Ox 10/31/20 12:49 97 F 56 L 16 131/97 H 100 - My Orders Last 24 Hours: My Active Orders 10/31/20 12:56 EKG 12 Lead [EKG Documentation Completion] [RC] STAT 10/31/20 13:05 Cardiac Monitoring [RC] . DIRECTED Sodium Chloride 0.9% [Saline Flush] 10 ml FLUSH ASDIRECTED PRN Peripheral IV Insertion Adult [OM.PC] Stat 10/31/20 13:06 Peripheral IV Care [RC] . DIRECTED Chest 1V Frontal [CR] Stat - Assessment/Plan Last 24 Hours: My Active Orders 10/31/20 12:56 EKG 12 Lead [EKG Documentation Completion] [RC] STAT 10/31/20 13:05 Cardiac Monitoring [RC] . DIRECTED Sodium Chloride 0.9% [Saline Flush] 10 ml FLUSH ASDIRECTED PRN Peripheral IV Insertion Adult [OM.PC] Stat 10/31/20 13:06 Peripheral IV Care [RC] . DIRECTED Chest 1V Frontal [CR] Stat
--- NOTE | 2020-11-02 08:29 | CR ---
Chest: Supine view of the chest was obtained. Comparison: Prior chest x-ray of 05/26/19. Heart size and mediastinum are normal. Lungs are clear with no acute parenchymal change. Old healed left clavicle fracture is noted. Impression: 1. Nothing acute is seen on portable supine chest x-ray. Diagnostic code #2 MTDD
== END 2020-10-31 15:43 | disposition home or self-care (01) ==
LOC: JD.ED 12:38
DX: I50.9 Heart failure, unspecified (principal); R10.9 Unspecified abdominal pain; R00.1 Bradycardia, unspecified; Z79.899 Other long term (current) drug therapy; Z20.822 Contact with and (suspected) exposure to COVID-19
CPT/HCPCS: 36415; 71045; 71045-26; 74176; 74176-26; 80053; 83880; 84484; 85025; 85379; 93005; 93010; 96374; 96375; 96376; 99284; 99285-25; J1170; J1200; J1885; J1940; J2405; J2765; U0002

== ENCOUNTER 2020-11-20 09:29 | Emergency (ER) | payer BC ==
[2020-11-20 09:38] VITALS: BP 154/92; PULSE 57
--- NOTE | 2020-11-20 09:52 | EDM.PDOC ---
ED HPI GENERAL MEDICAL PROBLEM - General Chief Complaint: Chest Pain Stated Complaint: chest pain sob Time Seen by Provider: 11/20/20 09:52 Source of Information: Reports: Patient History Limitations: Reports: No Limitations - History of Present Illness INITIAL COMMENTS - FREE TEXT/NARRATIVE: 40-year-old female presents to the ED in accompaniment of her . She reports sudden onset of severe sharp stabbing left parasternal chest pain in the upper anterior chest. Pain radiates through to her back and left lateral neck. Pain did not radiate down the left arm there is a strong pleuritic component to the pain. She denies cough or sputum production. No fever or chills. She had COVID-19 illness about a year ago. She states she had a very mild form of illness with nasal congestion cold symptoms but no severe cough. She has known cardiac arrhythmia problems with recurrent supraventricular tachycardia. She did have an ablation done about 10 years ago and experiences intermittent bouts of palpitations which she believes are SVT. On last visit she was appreciatied to be experiencing some congestive heart failure. Of note the patient is on 10 mg of Lasix daily . She has not yet seen cardiology in this regard with no recent echocardiogram. Patient has had a history of peptic ulcer disease with no H. pylori findings. This was confirmed on upper EGD exams x2. She avoids all NSAIDs because of this. She ate a piece of string cheese this morning which she did vomit up. The rest of the emesis was bilious. No blood. She had associated symptoms of lightheadedness and dizziness with the onset of the chest pain. Onset: Today, Sudden Onset Date: 11/20/20 Onset Time: 07:30 Duration: Hour(s):, Constant Location: Reports: Chest (Left anterior precordial chest pain which is sharp and stabbing rating to her left neck and through to her left upper shoulder blade) Quality: Reports: Sharp, Stabbing, Other (Strong pleuritic component to the pain) Severity: Moderate Improves with: Reports: Rest (8 out of 10 breathing shallowly) Worsens with: Reports: Other (With certain movements and deep breathing or.) Context: Denies: Activity, Exercise, Lifting, Sick Contact, Trauma, Other Associated Symptoms: Reports: Chest Pain. 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: Reports: Other (see below) (None.) Left Pain Score (Numeric/FACES): 9 - Related Data Allergies Allergy/AdvReac Type Severity Reaction Status Date / Time No Known Allergies Allergy Verified 11/20/20 09:37 Home Meds: Home Meds Furosemide [Lasix] 10 mg PO DAILY PRN 09/27/14 [History] Topiramate [Topamax] 50 mg PO DAILY 07/12/17 [History] Galcanezumab-Gnlm [Emgality Syringe] 1 injection INJECT ASDIRECTED 10/31/20 [History] Metoprolol Succinate 50 mg PO DAILY 10/31/20 [History] Pantoprazole [ProTONIX] 40 mg PO DAILY 10/31/20 [History] buPROPion HCL [Bupropion Xl] 150 mg PO DAILY 10/31/20 [History] predniSONE [Prednisone] 20 mg PO ASDIRECTED #16 tablet 11/20/20 [Rx] Past Medical History Cardiovascular History: Reports: Heart Failure, Syncope, Other (See Below) Other Cardiovascular History: SVT, fluid retention . Patient did undergo ablation about 10 years ago for paroxysmal SVT. Continues to have intermittent small or short duration bouts of tachyarrhythmia. Respiratory History: Reports: Other (See Below) Other Respiratory History: PPH--primary pulmonary HTN Gastrointestinal History: Reports: Other (See Below) Other Gastrointestinal History: stomach ulcers, esophagitis Genitourinary History: Reports: Renal Calculus [employer] History: Reports: , Spontaneous Musculoskeletal History: Reports: Fracture Neurological History: Reports: Migraines (Patient does take Emgality 120 mg beck bcu once monthly for migraine headache prophylaxis) Hematologic History: Reports: Anemia Oncologic (Cancer) History: Reports: Malignant Melanoma, Other (See Below) Other Oncologic History: surgery to remove area from L) lower lag. Dermatologic History: Reports: Other (See Below) Other Dermatologic History: skin cancer - Infectious Disease History Infectious Disease History: Reports: Chicken Pox - Past Surgical History HEENT Surgical History: Reports: Eye Surgery Cardiovascular Surgical History: Reports: Cardiac Ablation Other Cardiovascular Surgeries/Procedures: ablation GI Surgical History: Reports: Appendectomy, Cholecystectomy Female Surgical History: Reports: Hysterectomy, Other (See Below) Social & Family History - Family History Family Medical History: No Pertinent Family History Neurological: Reports: Cerebral Aneurysms Oncologic: Reports: Brain - Tobacco Use Tobacco Use Status *Q: Never Tobacco User Second Hand Smoke Exposure: No - Caffeine Use Caffeine Use: Reports: Soda - Recreational Drug Use Recreational Drug Use: No - Living Situation & Occupation Living situation: Reports: Occupation: Employed ED ROS GENERAL - Review of Systems Review Of Systems: See Below Constitutional: Reports: Fatigue. Denies: Fever, Chills, Malaise, Weakness, Decreased Appetite, Weight Loss HEENT: Reports: No Symptoms Respiratory: Reports: Pleuritic Chest Pain. Denies: Shortness of Breath, Wheezing, Cough, Sputum Cardiovascular: Reports: Chest Pain, Palpitations (Remittent bouts of palpitations). Denies: Blood Pressure Problem, Claudication (Left anterior precordial chest pain which is very sharp and stabbing.), Dyspnea on Exertion, Edema, Lightheadedness, Orthopnea Endocrine: Reports: Fatigue (Occasional bouts of fatigue.) GI/Abdominal: Reports: Other (History of GERD.) : Reports: No Symptoms Musculoskeletal: Reports: No Symptoms Skin: Reports: No Symptoms Neurological: Reports: No Symptoms Psychiatric: Reports: No Symptoms Hematologic/Lymphatic: Reports: No Symptoms Immunologic: Reports: No Symptoms ED EXAM, GENERAL - Physical Exam Exam: See Below Exam Limited By: No Limitations General Appearance: Alert, WD/WN, Mild Distress, Other (Temperature is 36.1 degrees. Heart rate was 57 and sinus. Respiratory to 16 with O2 sats 100% room air. BP initially elevated 154/92. It subsequently has come down to 142/78.) Eye Exam: Bilateral Eye: Normal Inspection (No blepharal pallor or scleral icterus.), PERRL Ears: Normal TMs Throat/Mouth: Normal Inspection, Normal Lips, Normal Oropharynx Head: Atraumatic, Normocephalic Neck: Normal Inspection, Non-Tender. No: Carotid Bruit, Lymphadenopathy (L), Lymphadenopathy (R) Respiratory/Chest: No Respiratory Distress, Lungs Clear, Normal Breath Sounds, No Accessory Muscle Use, Splinting (Mild bilateral splinting. Taking very shallow breaths making it difficult to ascertain if there is any underlying adventitial sounds.), Other (I would describe the pain as moderate on light palpation). No: Rales, Rhonchi, Wheezing Cardiovascular: Normal Peripheral Pulses, Regular Rate, Rhythm, No Edema, No Gallop, No Murmur, No Rub Peripheral Pulses: 3+: Carotid (L), Carotid (R), Posterior Tibial (L), Posterior Tibial (R), Dorsalis Pedis (L), Dorsalis Pedis (R) GI/Abdominal: Normal Bowel Sounds, Soft, Non-Tender, No Organomegaly, No Distention, No Abnormal Bruit, Other (Patient has had a previous cholecystectomy and appendectomy) Back Exam: Normal Inspection, Full Range of Motion. No: CVA Tenderness (L), CVA Tenderness (R) Extremities: Normal Inspection, Normal Range of Motion, Non-Tender, No Pedal Edema Neurological: Alert, Oriented, CN II-XII Intact, Normal Cognition Psychiatric: Normal Mood, Flat Affect Skin Exam: Warm, Dry, Intact, Normal Color, No Rash #1 Interpretation EKG Date: 11/20/20 Time: 09:44 Rhythm: NSR Rate (Beats/Min): 64 Winger: Normal P-Wave: Present QRS: Other (Mildly decreased voltage precordial leads) ST-T: Other (Nonspecific T wave flattening in lead III and V2.) QT: Normal EKG Interpretation Comments: Essentially normal ECG Course - Vital Signs Last Recorded V/S: Last Vital Signs Temp 36.1 C 11/20/20 09:34 Pulse 57 L 11/20/20 09:34 Resp 16 11/20/20 09:34 BP 154/92 H 11/20/20 09:34 Pulse Ox 100 11/20/20 09:34 - Orders/Labs/Meds Labs: Laboratory Tests 11/20/20 11/20/20 11/20/20 Range/Units 10:10 10:10 10:10 WBC 6.56 (3.98-10.04) K/mm3 RBC 4.16 (3.98-5.22) M/mm3 Hgb 12.8 (11.2-15.7) gm/dl Hct 39.8 (34.1-44.9) % MCV 95.7 H (79.4-94.8) fl MCH 30.8 (25.6-32.2) pg MCHC 32.2 (32.2-35.5) g/dl RDW Std Deviation 44.1 (36.4-46.3) fL Plt Count 300 (182-369) K/mm3 MPV 8.4 L (9.4-12.3) fl Neut % (Auto) 61.5 (34.0-71.1) % Lymph % (Auto) 27.7 (19.3-51.7) % Sevier % (Auto) 6.9 (4.7-12.5) % Eos % (Auto) 3.2 (0.7-5.8) Baso % (Auto) 0.5 (0.1-1.2) % Neut # (Auto) 4.04 (1.56-6.13) K/mm3 Lymph # (Auto) 1.82 (1.18-3.74) K/mm3 Sevier # (Auto) 0.45 H (0.24-0.36) K/mm3 Eos # (Auto) 0.21 (0.04-0.36) K/mm3 Baso # (Auto) 0.03 (0.01-0.08) K/mm3 PT 11.0 (9.7-12.0) SECONDS INR 1.03 APTT 24.4 (21.7-31.4) SECONDS D-Dimer, Quantitative (0.19-0.50) mg/L Sodium 145 (136-145) mEq/L Potassium 3.8 (3.5-5.1) mEq/L Chloride 109 H (98-107) mEq/L Carbon Dioxide 25 (21-32) mEq/L Anion Gap 14.8 (5-15) BUN 7 (7-18) mg/dL Creatinine 0.8 (0.55-1.02) mg/dL Est Cr Clr Drug Dosing 83.27 mL/min Estimated GFR (MDRD) > 60 (>60) mL/min BUN/Creatinine Ratio 8.8 L (14-18) Glucose 98 (70-99) mg/dL Calcium 8.5 (8.5-10.1) mg/dL Magnesium 2.0 (1.8-2.4) mg/dL Total Bilirubin 0.3 (0.2-1.0) mg/dL AST 30 (15-37) U/L ALT 43 (14-59) U/L Alkaline Phosphatase 61 (46-116) U/L CK-MB (CK-2) 0.6 (0-3.6) ng/ml Troponin I < 0.017 (0.00-0.056) ng/mL C-Reactive Protein <0.2 (<1.0) mg/dL NT-Pro-B Natriuret Pep (0-125) pg/mL Total Protein 6.6 (6.4-8.2) g/dl Albumin 3.4 (3.4-5.0) g/dl Globulin 3.2 gm/dL Albumin/Globulin Ratio 1.1 (1-2) 11/20/20 11/20/20 Range/Units 10:10 10:10 WBC (3.98-10.04) K/mm3 RBC (3.98-5.22) M/mm3 Hgb (11.2-15.7) gm/dl Hct (34.1-44.9) % MCV (79.4-94.8) fl MCH (25.6-32.2) pg MCHC (32.2-35.5) g/dl RDW Std Deviation (36.4-46.3) fL Plt Count (182-369) K/mm3 MPV (9.4-12.3) fl Neut % (Auto) (34.0-71.1) % Lymph % (Auto) (19.3-51.7) % Sevier % (Auto) (4.7-12.5) % Eos % (Auto) (0.7-5.8) Baso % (Auto) (0.1-1.2) % Neut # (Auto) (1.56-6.13) K/mm3 Lymph # (Auto) (1.18-3.74) K/mm3 Sevier # (Auto) (0.24-0.36) K/mm3 Eos # (Auto) (0.04-0.36) K/mm3 Baso # (Auto) (0.01-0.08) K/mm3 PT (9.7-12.0) SECONDS INR APTT (21.7-31.4) SECONDS D-Dimer, Quantitative 0.22 (0.19-0.50) mg/L Sodium (136-145) mEq/L Potassium (3.5-5.1) mEq/L Chloride (98-107) mEq/L Carbon Dioxide (21-32) mEq/L Anion Gap (5-15) BUN (7-18) mg/dL Creatinine (0.55-1.02) mg/dL Est Cr Clr Drug Dosing mL/min Estimated GFR (MDRD) (>60) mL/min BUN/Creatinine Ratio (14-18) Glucose (70-99) mg/dL Calcium (8.5-10.1) mg/dL Magnesium (1.8-2.4) mg/dL Total Bilirubin (0.2-1.0) mg/dL AST (15-37) U/L ALT (14-59) U/L Alkaline Phosphatase (46-116) U/L CK-MB (CK-2) (0-3.6) ng/ml Troponin I (0.00-0.056) ng/mL C-Reactive Protein (<1.0) mg/dL NT-Pro-B Natriuret Pep 205 H (0-125) pg/mL Total Protein (6.4-8.2) g/dl Albumin (3.4-5.0) g/dl Globulin gm/dL Albumin/Globulin Ratio (1-2) Meds: Medications Discontinued Medications Generic Name Dose Route Start Last Admin Trade Name Freq PRN Reason Stop Dose Admin Hydromorphone HCl 0.5 mg 11/20/20 10:02 11/20/20 10:12 Hydromorphone 0.5 Mg/0.5 Ml Syringe IVPUSH 11/20/20 10:03 0.5 mg ONETIME ONE Administration Hydromorphone HCl 0.25 mg 11/20/20 12:03 11/20/20 12:08 Hydromorphone 0.5 Mg/0.5 Ml Syringe IVPUSH 11/20/20 12:04 0.25 mg ONETIME ONE Administration Dextrose/Sodium Chloride 1,000 mls @ 125 mls/hr 11/20/20 10:00 11/20/20 10:12 Dextrose 5%-Normal Saline IV 125 mls/hr ASDIRECTED CHANTELL Administration Methylprednisolone Sodium Succinate 62.5 mg 11/20/20 12:02 11/20/20 12:08 Methylprednisolone Sodium Succinate 125 Mg/2 Ml Sdv IVPUSH 11/20/20 12:03 62.5 mg ONETIME ONE Administration Ondansetron HCl 4 mg 11/20/20 10:00 11/20/20 10:12 Ondansetron 4 Mg/2 Ml Sdv IVPUSH 11/20/20 10:01 4 mg ONETIME ONE Administration - Radiology Interpretation Free Text/Narrative:: 40-year-old female presents to the ED for evaluation of sudden onset of left precordial sharp stabbing anterior chest pain rating through to her scapula and left side of her neck. No cough or sputum production no fever or chills. Lungs are clear to my auscultation. She is breathing shallowly however. History of ablation for paroxysmal tachycardia. Which she states was SVT. Ablation was done 10 years ago. She still gets intermittent bouts of rapid heart rate. More recently she has been diagnosed with a mild congestive heart failure. To her knowledge she is not seen cardiology or had an echocardiogram recently. On examination she does have chest wall pain in the midclavicular line left anterior chest particular over ribs 3 4 and 5 as compared to the right side. Plan routine labs to include cardiac markers and D-dimer and CRP. 1 view chest x-ray. ECG done by triage nurse shows sinus rhythm at 64/min with no evidence of ischemic change. - Re-Assessments/Exams Free Text/Narrative Re-Assessment/Exam: 11/20/20 10:29 portable chest x-ray is within normal limits. Cardiac silhouette and mediastinum are normal. Visualized portions of the lung parenchyma are clear. No pleural effusion no pneumothorax. Also the ribs appear to be within normal limits. There is evidence of an old healed left clavicle fracture 11/20/20 10:44 Hematology is back revealing a normal white count at 6.56. The auto differential shows 61.5% neutrophils. Hemoglobin is 12.8 with hematocrit of 39.8. MCV minimally elevated at 95.7. Platelet count is 300,000. Patient's leads had come off of her monitor and I reapplied them. I reassured her that her ECG and chest x-ray were normal. She has received adequate pain relief with the Dilaudid 0.5 mg IV at this time. Awaiting further labs. 11/20/20 11:00 PT is 11.0 with an INR of 1.03. PTT is 24.4 D-dimer is normal at 0.22. 11/20/20 11:55 Sodium is 145 with a potassium of 3.8. Chloride is 109 with a bicarb of 25. Anion gap is 14.8. BUN is 7 with a creatinine of 0.8. GFR is greater than 60. Glucose is 98 calcium is 8.5. Magnesium is 2.0 liver function is normal. CK-MB fraction is 0.6 troponin I is less than 0.017. C-reactive protein is less than 0.2. BNP is 205. Total protein 6.6 with an albumin fraction of 3.4 11/20/20 12:08 dDscussed the findings with the patient and her . Pain in her left chest is coming back. She did develop mild hypoxemia after 0.5 mg of Dilaudid IV. We will repeat the dosage at 0.25 mg IV now. I am also going to give her 62.5 mg of Solu-Medrol IV to help reduce inflammation in the chest wall. The plan will be to place her on prednisone 20 mg twice daily for 5 days and then once daily in the morning only for another 5 days in the hopes that it will not cause too much fluid retention as she has mild congestive failure. Patient is on bupropion 150 mg once daily and the combination of steroids and bupropion can lower her seizure threshold. She has no history of seizures. We do not have much alternatives in terms of anti-inflammatory treatment and I will therefore proceed with steroids at this time .She is currently apparently on spironolactone 25 mg or 50 mg once daily which has been working well to reduce her heart failure as she her last BNP was 1025. Advised follow-up with her primary care practitioner Dr. Hurley in 2 weeks time Departure - Departure Time of Disposition: 12:09 Disposition: Home, Self-Care 01 Reason for Transfer *Q: Other Condition: Fair Clinical Impression: Non-cardiac chest pain, Anterior chest wall pain, Mild congestive heart failure Prescriptions: predniSONE [Prednisone] 20 mg PO ASDIRECTED #16 tablet Instructions: Heart Failure, Diagnosis, Chest Wall Pain Referrals: Gabby Berry MD [Primary Care Provider] - Forms: ED Department Discharge Additional Instructions: Evaluation in the emergency room today in regards to development of acute onset of sharp stabbing anterior precordial chest pain rating through to your back and left side of your neck. Examination revealed clear lung ayala and normal heart sounds. ECG also was normal at this time. Lab work did not reveal any signs of blood clots in the lung and normal cardiac markers. Was no evidence of heart related illness at this time. It is felt that inflammation of the lining of your rib particularly ribs 3 4 and 5 on the left side is the cause of current chest wall pain causing pain syndrome. Suggest treatment with steroids with initial dose of Solu-Medrol given in the ED. Suggest 20 mg of prednisone before bed tonight with little food. And you should take 1 twice daily with breakfast and supper for 5 days and then once in the morning only for another 5 days to relieve inflammation since she cannot take nonsteroidal anti-inflammatories due to peptic ulcer disease. This may cause you to retain some fluid and aggravate your mild heart failure but it should not cause severe fluid retention. Suggest follow-up with your primary care provider Dr. Hurley in 10-12 days time. Sepsis Event Note (ED) - Evaluation Sepsis Screening Result: No Definite Risk
[2020-11-20] MEDS ORDERED: Dextrose 5%-0.9% NaCl 1,000 ML IV SCH (10:00)
[2020-11-20] MEDS ORDERED: Ondansetron 4 MG/2 ML SDV IVPUSH ONE (10:00)
[2020-11-20] MEDS ORDERED: HYDROmorphone 0.5 MG/0.5 ML Syringe IVPUSH ONE ×2 (10:02→12:03)
--- NOTE | 2020-11-20 10:44 | CR ---
Chest: Portable view of the chest was obtained. Comparison: Prior chest x-ray of 10/31/20. Heart size and mediastinum are within normal limits. Lungs are clear with no acute parenchymal change. No acute osseous abnormality is appreciated. Incidental note of old healed left clavicle fracture. Impression: 1. Nothing acute is seen on portable chest x-ray. Diagnostic code #2
[2020-11-20] MEDS ORDERED: methylPREDNISolone Sodium Succinate 125 MG/2 ML SDV IVPUSH ONE (12:02)
== END 2020-11-20 12:24 | disposition home or self-care (01) ==
LOC: JD.ED 09:29
DX: I11.0 Hypertensive heart disease with heart failure (principal); I50.9 Heart failure, unspecified; I27.0 Primary pulmonary hypertension; Z79.899 Other long term (current) drug therapy; Z86.16 Personal history of COVID-19
CPT/HCPCS: 36415; 71045; 71045-26; 80053; 82553; 83735; 83880; 84484; 85025; 85379; 85610; 85730; 86140; 93005; 93010; 96374; 96375; 96376; 99284; 99285-25; J1170; J2405; J2930; J7042

== ENCOUNTER 2021-04-30 12:32 | Emergency (ER) | payer BC ==
[2021-04-30 12:49] VITALS: BP 157/108; PULSE 74
[2021-04-30] MEDS ORDERED: Sodium Chloride 0.9% 10 ML Syringe FLUSH PRN (12:55)
[2021-04-30] MEDS ORDERED: Ketorolac 30 MG/ML SDV IVPUSH ONE (12:56)
[2021-04-30] MEDS ORDERED: Sodium Chloride 0.9% 1,000 ML IV STA (12:56)
[2021-04-30] MEDS ORDERED: diphenhydrAMINE 50 MG/ML SDV IVPUSH ONE (12:57)
[2021-04-30] MEDS ORDERED: Metoclopramide 10 MG/2 ML SDV IVPUSH ONE (12:57)
[2021-04-30] MEDS ORDERED: methylPREDNISolone Sodium Succinate 125 MG/2 ML SDV IVPUSH ONE (14:12)
== END 2021-04-30 17:23 | disposition home or self-care (01) ==
LOC: JD.ED 12:32
DX: U07.1 COVID-19 (principal); R53.1 Weakness; I10 Essential (primary) hypertension; Z79.899 Other long term (current) drug therapy
CPT/HCPCS: 36415; 70450; 70551; 72141; 80053; 83735; 85025; 85379; 86140; 87635; 96374; 96375; 99285; J1200; J1885; J2765; J2930; J7030; U0002

== ENCOUNTER 2021-07-10 19:21 | Emergency (ER) | payer BC ==
[2021-07-10 19:31] VITALS: BP 148/101; PULSE 86
== END 2021-07-10 20:19 | disposition home or self-care (01) ==
LOC: JD.ED 19:21
DX: H54.7 Unspecified visual loss (principal); K21.9 Gastro-esophageal reflux disease without esophagitis; E66.9 Obesity, unspecified; Z28.310 Unvaccinated for COVID-19; Z68.38 Body mass index [BMI] 38.0-38.9, adult
CPT/HCPCS: 99283

== ENCOUNTER 2023-05-14 20:57 | Emergency (ER) | payer BC, OTHER ==
[2023-05-14] MEDS: Sodium Chloride 0.9% 10 ML Syringe FLUSH PRN (21:21)
[2023-05-14 21:23] LABS: BASOPHILS ABSOLUTE AUTO 0.1 K/mm3 (0.0-0.2); BASOPHILS PERCENT AUTO 0.8 % (0.0-1.0); EOSINOPHILS ABSOLUTE AUTO 0.3 K/mm3 (0.0-0.4); EOSINOPHILS PERCENT AUTO 2.8 % (0.0-6.0); HEMATOCRIT 36.6 % (37.0-47.0); HEMOGLOBIN 12.2 gm/dl (12.0-16.0); IMMATURE GRAN ABSOLUTE AUTO 0.04 K/mm3 (0.00-0.05); IMMATURE GRAN PERCENT AUTO 0.4 % (0.0-0.4); LYMPHOCYTES PERCENT AUTO 40.7 % (24.0-44.0); MEAN CORPUSCULAR HEMOGLOBIN 30.6 pg (28.0-32.0); MEAN CORPUSCULAR HGB CONC 33.3 g/dl (32.0-36.0); MEAN CORPUSCULAR VOLUME 91.7 fl (83.0-99.0); MONOCYTES ABSOLUTE AUTO 0.6 K/mm3 (0.0-0.8); MONOCYTES PERCENT AUTO 6.4 % (0.0-8.0); NEUTROPHILS ABSOLUTE AUTO 4.8 K/mm3 (1.8-7.7); NEUTROPHILS PERCENT AUTO 48.9 % (41.0-71.0); PLATELET COUNT,PLT 327 K/mm3 (150-400); RED BLOOD CELL COUNT 3.99 M/mm3 (4.10-5.30); WHITE BLOOD CELL COUNT,WBC 9.84 K/mm3 (3.9-11.3)
[2023-05-14 22:06] LABS: ALBUMIN 3.4 g/dl (3.4-5.0); ANION GAP 14.8 (5-15); BILIRUBIN TOTAL 0.3 mg/dL (0.2-1.0); BUN/CREATININE RATIO 11.3 (14-18); CALCIUM 8.7 mg/dL (8.5-10.1); CREATININE 0.8 mg/dL (0.55-1.02); EST CRCL DRUG DOSING (CG) 80.75 mL/min; MAGNESIUM 1.4 mg/dL (1.8-2.4); POTASSIUM,K 3.8 mEq/L (3.5-5.1); PROTEIN TOTAL,TP 6.9 g/dl (6.4-8.2)
[2023-05-14] MEDS ORDERED: Aspirin 81 MG Tab.Chew ONE (22:32)
[2023-05-14] MEDS ORDERED: Nitroglycerin 0.4 MG Tab.SL ONE (22:32)
[2023-05-14] MEDS: Aspirin 81 MG Tab.Chew PO ONE (22:34)
[2023-05-14] MEDS: Nitroglycerin 0.4 MG Tab.SL SL STA (22:35)
[2023-05-14] MEDS ORDERED: Acetaminophen 325 MG Tab ONE (22:58)
[2023-05-14] MEDS: Acetaminophen 325 MG Tab PO ONE (22:59)
[2023-05-14] MEDS ORDERED: Ketorolac 30 MG/ML SDV ONE (23:45)
[2023-05-14] MEDS: Ketorolac 30 MG/ML SDV IVPUSH ONE (23:46)
[2023-05-15] MEDS ORDERED: Heparin Sodium/D5W 500 ML ONE (00:36)
[2023-05-15] MEDS ORDERED: Heparin Sodium 5,000 Units/ML Vial ONE (00:36)
[2023-05-15] MEDS: Heparin Sodium 5,000 Units/ML Vial IVPUSH ONE (00:39)
[2023-05-15] MEDS: Heparin Sodium/D5W 25,000 UNITS/500 ML BAG IV SCH (00:48)
[2023-05-15] MEDS ORDERED: Magnesium Sulfate/Water 50 ML ONE (01:07)
[2023-05-15] MEDS: Magnesium Sulfate/Water 2 GM in Premix Bag 1 BAG IV ONE (01:11)
[2023-05-15] MEDS ORDERED: Nitroglycerin/D5W 25 MG/250 ML BOTTLE ONE (02:08)
[2023-05-15] MEDS: Nitroglycerin/D5W 25 MG/250 ML BOTTLE IV SCH (02:10)
[2023-05-15 02:53] VITALS: BP 114/95; PULSE 73
== END 2023-05-15 02:51 ==
LOC: JD.ED 20:57
DX: I21.4 Non-ST elevation (NSTEMI) myocardial infarction (principal); R79.89 Other specified abnormal findings of blood chemistry; R07.89 Other chest pain; I50.9 Heart failure, unspecified; E66.9 Obesity, unspecified; Z68.41 Body mass index [BMI] 40.0-44.9, adult; Z90.49 Acquired absence of other specified parts of digestive tract; Z90.710 Acquired absence of both cervix and uterus; Z79.899 Other long term (current) drug therapy
CPT/HCPCS: 36415; 71045; 71045-26; 80053; 83735; 83880; 84484; 85025; 85730; 93005; 96365; 96366; 96368; 96375; 99285-25; A9270-GY; J1644; J1885; J2305; J3475; J3490

== ENCOUNTER 2023-12-29 03:26 | Emergency (ER) | payer OTHER ==
[2023-12-29] MEDS: Metoclopramide 10 MG/2 ML SDV IVPUSH ONE (03:58)
[2023-12-29] MEDS: Dextrose 5%-0.9% NaCl 1,000 ML IV SCH ×2 (03:58→08:43)
[2023-12-29 03:59] LABS: BASOPHILS ABSOLUTE AUTO 0.1 K/mm3 (0.0-0.2); BASOPHILS PERCENT AUTO 0.4 % (0.0-1.0); EOSINOPHILS ABSOLUTE AUTO 0.1 K/mm3 (0.0-0.4); EOSINOPHILS PERCENT AUTO 0.3 % (0.0-6.0); HEMATOCRIT 45.8 % (37.0-47.0); HEMOGLOBIN 15.4 gm/dl (12.0-16.0); IMMATURE GRAN ABSOLUTE AUTO 0.07 K/mm3 (0.00-0.05); IMMATURE GRAN PERCENT AUTO 0.4 % (0.0-0.4); LYMPHOCYTES ABSOLUTE AUTO 1.8 K/mm3 (1.0-4.8); LYMPHOCYTES PERCENT AUTO 11.4 % (24.0-44.0); MEAN CORPUSCULAR HGB CONC 33.6 g/dl (32.0-36.0); MEAN CORPUSCULAR VOLUME 89.1 fl (83.0-99.0); MEAN PLATELET VOLUME 9.3 fl (9.4-12.3); MONOCYTES ABSOLUTE AUTO 0.8 K/mm3 (0.0-0.8); MONOCYTES PERCENT AUTO 4.9 % (0.0-8.0); NEUTROPHILS ABSOLUTE AUTO 13.2 K/mm3 (1.8-7.7); NEUTROPHILS PERCENT AUTO 82.6 % (41.0-71.0); PLATELET COUNT,PLT 475 K/mm3 (150-400); RED BLOOD CELL COUNT 5.14 M/mm3 (4.10-5.30); WHITE BLOOD CELL COUNT,WBC 16.01 K/mm3 (3.9-11.3)
[2023-12-29] MEDS: HYDROmorphone 1 MG/ML Syringe IVPUSH ONE (04:01)
[2023-12-29 04:17] LABS: ALBUMIN 4.4 g/dl (3.4-5.0); ANION GAP 33.6 (5-15); BILIRUBIN TOTAL 0.6 mg/dL (0.2-1.0); BUN/CREATININE RATIO 4.5 (14-18); C-REACTIVE PROTEIN 2.63 mg/dL (<0.30); CALCIUM 9.6 mg/dL (8.5-10.1); CREATININE 1.1 mg/dL (0.55-1.02); EST CRCL DRUG DOSING (CG) 58.73 mL/min; MAGNESIUM 1.4 mg/dL (1.8-2.4); POTASSIUM,K 3.6 mEq/L (3.5-5.1); PROTEIN TOTAL,TP 8.9 g/dl (6.4-8.2)
[2023-12-29 04:19] LABS: LACTIC ACID 1.8 mmol/L (0.4-2.0)
[2023-12-29] MEDS: Lactated Ringers 1,000 ML IV SCH ×2 (04:56→06:30)
[2023-12-29] MEDS: HYDROmorphone 0.5 MG/0.5 ML Syringe IVPUSH ONE (05:04)
[2023-12-29] MEDS: Magnesium Sulfate/Water Premix 4 GM in Premix Bag 1 BAG IV ONE (06:32)
[2023-12-29] MEDS: LORazepam 2 MG/ML SDV IVPUSH ONE (06:37)
[2023-12-29 06:43] VITALS: BP 137/93; PULSE 72
[2023-12-29] MEDS: Lactated Ringers 1,000 ML IV ONE (07:40)
[2023-12-29 10:18] LABS: APPEARANCE,URINE CLEAR (Clear); BILIRUBIN,URINE 1+ (Negative); COLOR,URINE YELLOW (Yellow); GLUCOSE,URINE 2+ (Negative); KETONES,URINE 4+ (Negative); LEUKOCYTE ESTERASE,URINE NEGATIVE (Negative); NITRITE,URINE NEGATIVE (Negative); OCCULT BLOOD,URINE TRACE-LYSED (Negative); PROTEIN,URINE 2+ (Negative); UROBILINOGEN,URINE 0.2 (0.2-1.0)
[2023-12-29 10:49] LABS: BACTERIA,URINE FEW /hpf (FEW); MUCUS,URINE MODERATE /hpf (FEW); RBC,URINE 0-5 /hpf (0-5); WBC,URINE 0-5 /hpf (0-5)
[2023-12-29 11:46] LABS: A/G RATIO 0.9 (1-2); ALBUMIN 2.8 g/dl (3.4-5.0); ANION GAP 15.2 (5-15); BILIRUBIN TOTAL 0.3 mg/dL (0.2-1.0); BUN/CREATININE RATIO 2.5 (14-18); CALCIUM 7.8 mg/dL (8.5-10.1); CREATININE 0.8 mg/dL (0.55-1.02); EST CRCL DRUG DOSING (CG) 80.75 mL/min; POTASSIUM,K 3.2 mEq/L (3.5-5.1)
== END 2023-12-29 14:00 | disposition home or self-care (01) ==
LOC: JD.ED 03:26
DX: R11.2 Nausea with vomiting, unspecified (principal); E83.42 Hypomagnesemia; E87.20 Acidosis, unspecified; I11.0 Hypertensive heart disease with heart failure; K21.9 Gastro-esophageal reflux disease without esophagitis; E66.9 Obesity, unspecified; Z86.69 Personal history of other diseases of the nervous system and sense organs; Z90.49 Acquired absence of other specified parts of digestive tract; Z90.710 Acquired absence of both cervix and uterus; Z79.899 Other long term (current) drug therapy; Z68.29 Body mass index [BMI] 29.0-29.9, adult
CPT/HCPCS: 36415; 80053; 81001; 82010; 83605; 83690; 83735; 83930; 85025; 86140; 96361; 96365; 96366; 96375; 96376; 99284; J2060; J2765; J3475; J7042; J7120; J1171

== ENCOUNTER 2023-12-31 20:20 | Emergency (ER) | payer OTHER ==
[2023-12-31 20:54] VITALS: BP 156/121; PULSE 89
[2023-12-31 21:38] LABS: BASOPHILS ABSOLUTE AUTO 0.1 K/mm3 (0.0-0.2); BASOPHILS PERCENT AUTO 0.9 % (0.0-1.0); EOSINOPHILS ABSOLUTE AUTO 0.1 K/mm3 (0.0-0.4); EOSINOPHILS PERCENT AUTO 1.2 % (0.0-6.0); HEMATOCRIT 37.8 % (37.0-47.0); HEMOGLOBIN 13.5 gm/dl (12.0-16.0); IMMATURE GRAN ABSOLUTE AUTO 0.01 K/mm3 (0.00-0.05); IMMATURE GRAN PERCENT AUTO 0.2 % (0.0-0.4); LYMPHOCYTES ABSOLUTE AUTO 2.3 K/mm3 (1.0-4.8); LYMPHOCYTES PERCENT AUTO 40.3 % (24.0-44.0); MEAN CORPUSCULAR HEMOGLOBIN 30.8 pg (28.0-32.0); MEAN CORPUSCULAR HGB CONC 35.7 g/dl (32.0-36.0); MEAN CORPUSCULAR VOLUME 86.1 fl (83.0-99.0); MEAN PLATELET VOLUME 9.2 fl (9.4-12.3); MONOCYTES ABSOLUTE AUTO 0.5 K/mm3 (0.0-0.8); MONOCYTES PERCENT AUTO 8.6 % (0.0-8.0); NEUTROPHILS ABSOLUTE AUTO 2.8 K/mm3 (1.8-7.7); NEUTROPHILS PERCENT AUTO 48.8 % (41.0-71.0); PLATELET COUNT,PLT 391 K/mm3 (150-400); RED BLOOD CELL COUNT 4.39 M/mm3 (4.10-5.30); WHITE BLOOD CELL COUNT,WBC 5.81 K/mm3 (3.9-11.3)
[2023-12-31 22:00] LABS: A/G RATIO 1.1 (1-2); ALBUMIN 3.6 g/dl (3.4-5.0); ANION GAP 14.4 (5-15); BILIRUBIN TOTAL 0.6 mg/dL (0.2-1.0); BUN/CREATININE RATIO 2.5 (14-18); CALCIUM 8.7 mg/dL (8.5-10.1); CREATININE 0.8 mg/dL (0.55-1.02); EST CRCL DRUG DOSING (CG) 80.75 mL/min; MAGNESIUM 1.4 mg/dL (1.8-2.4); PROTEIN TOTAL,TP 6.8 g/dl (6.4-8.2)
[2023-12-31] MEDS: Sodium Chloride 0.9% 10 ML Syringe FLUSH PRN (22:01)
[2023-12-31] MEDS: Sodium Chloride 0.9% 1,000 ML IV SCH (22:01)
[2023-12-31] MEDS: Metoclopramide 10 MG/2 ML SDV IVPUSH ONE (22:01)
[2023-12-31] MEDS: Ondansetron 4 MG/2 ML SDV IVPUSH ONE (22:01)
[2023-12-31 22:03] LABS: POTASSIUM,K 2.4 mEq/L (3.5-5.1)
[2023-12-31] MEDS: Magnesium Sulfate/Water Premix 2 GM in Premix Bag 1 BAG IV ONE (22:44)
[2023-12-31] MEDS: Potassium Chloride 10 MEQ in Premix Bag 1 BAG IV SCH (22:44)
[2023-12-31] MEDS ORDERED: Sodium Chloride 0.9% 1,000 ML IV SCH (22:45)
[2024-01-01] MEDS: HYDROmorphone 0.5 MG/0.5 ML Syringe IVPUSH ONE
[2024-01-01 02:43] LABS: ANION GAP 12.1 (5-15); BUN/CREATININE RATIO 3.3 (14-18); CALCIUM 7.6 mg/dL (8.5-10.1); CREATININE 0.6 mg/dL (0.55-1.02); EST CRCL DRUG DOSING (CG) 107.67 mL/min; POTASSIUM,K 3.1 mEq/L (3.5-5.1)
[2024-01-01] MEDS ORDERED: Potassium Chloride 10 MEQ in Premix Bag 1 BAG IV ONE (03:28)
[2024-01-01] MEDS: Potassium Chloride 10 MEQ in Premix Bag 1 BAG IV ONE ×2 (03:35→04:31)
[2024-01-01] MEDS: Dextrose 5%-Lactated Ringers 1,000 ML IV SCH (03:35)
[2024-01-01] MEDS: Ondansetron 4 MG/2 ML SDV IVPUSH ONE (03:39)
[2024-01-01] MEDS: Metoclopramide 10 MG/2 ML SDV IVPUSH ONE (05:14)
== END 2024-01-01 06:05 | disposition home or self-care (01) ==
LOC: JD.ED 20:20
DX: R11.2 Nausea with vomiting, unspecified (principal); E87.6 Hypokalemia; I50.9 Heart failure, unspecified; K21.9 Gastro-esophageal reflux disease without esophagitis; E66.9 Obesity, unspecified; Z68.29 Body mass index [BMI] 29.0-29.9, adult; Z79.899 Other long term (current) drug therapy; Z90.710 Acquired absence of both cervix and uterus
CPT/HCPCS: 36415; 80048; 80053; 83735; 85025; 96361; 96365; 96366; 96368; 96375; 96376; 99284; J1171; J2405; J2765; J3475; J3480; J3490; J7030; J7121